=== PATIENT | female | born 1940 | race Caucasian/White ===

== ENCOUNTER 2017-12-28 14:29 | Emergency (ER) | payer MEDICARE, BC ==
--- OUTSIDE RECORDS SUMMARY | 2017-12-28 14:37 | XMS REPORT ---
:1940 External Reference #:[id number] Author Organization [facility] Address [address] [place] [address] [place] [address] Phone [phone] Care Team Providers Name Role Phone Víctor Cochran MD Care Team Information Edger Feeder Unavailable Víctor Cochran MD Primary Care Physician Unavailable Payers Type Date Identification Numbers Payment Provider Subscriber Medicare Primary Effective: Policy Number: Medicare Doris Dietz 2005 [id number] PayID: [id number] [address] [place] [address] Medigap Part B Effective: 2005 Policy Number: [facility] Joseph Dietz [id number] PayID: [id number] [address] [place] [address] Problems Date Description Provider Status Onset: 01/12/2017 Cough variant asthma Umu Quesada M.D.,FACP Onset: 04/23/2007 Diverticulitis of colon Umu Quesada M.D.FACP Onset: 08/16/2008 Benign essential hypertension Víctor Cochran Active MichaelFACP Onset: 08/17/2010 Chronic nonalcoholic liver Víctor Cochran Active disease Michael,FACP Note: needs yearly LFTs Onset: 09/19/2011 Hereditary hemochromatosis Víctor Cochran M.D.,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 Onset: 09/19/2011 Pure hypercholesterolemia Umu Quesada M.D.,ABISAIP Onset: 09/19/2011 Allergic rhinitis due to pollen Umu Quesada M.D.,ABISAIP Onset: 02/12/2012 Osteochondropathy Umu Quesada M.D.,FACP Onset: 12/31/2012 Impaired fasting glycaemia Umu Quesada M.D.,FACP Onset: 12/31/2012 Left bundle branch hemiblock Umu Quesada M.D.,ABISAIP Onset: 07/13/2014 Cholelithiasis without obstruction Umu Quesada M.D.,ABISAIP Onset: 12/18/2016 Cardiomyopathy Umu Quesada M.D.,ARRON Note: EF 40% Onset: 07/13/2014 Hypercalcemia Víctor Cochran M.D.,ARRON Inactive Inactive: 12/18/2016 Family History Date Family Member(s) Problem(s) Comments General Hypertension Father due to Parkinsons () Disease Mother Pacemaker : (age 101 Mother due to Natural Causes Years) First Son Hemochromatosis First Daughter No Current Problems Siblings 2 3 initially First Brother Heart Disease First Brother due to Lung Cancer () First Brother Alcoholism First Brother Lung Cancer First Sister Lung Cancer Social History Type Date Description Comments Marital Status Lives With Spouse Occupation Retired Cigarette Use Never Smoked Cigarettes ETOH Use 09/11/2017 Occasionally consumes alcohol Recreational Drug Use Denies Drug Use Smoking Patient has never smoked General Hx Text 3 kids Allergies, Adverse Reactions, Alerts Date Description Reaction Status Severity Comments 04/20/2007 Penicillin active 04/20/2007 Lisinopril active Medications Medication Date Status Form Strength Qnty SIG Indications Ordering Provider Proair HFA 09/11 Active Aerosol 108(90Bas 8.5un 2 puffs by e) its mouth every D. Sammie, mcg/Act 4 hours as ARRON Rodriguez needed Senior Tabs 12/18 Active Tablets 1 po qd Klaus Cochran M.D.,FACP Vitamin D 12/05 Active Tablets 1000Unit 30tab by mouth Víctor /2014 s everyday Otis Cochran M.D.,FACP Losartan 01/22 Active Tablets 50-12.5mg 90tab take 1 Víctor Potassium/[place] /2010 s tablet every Otis Cochran, chlorothiazide morning M.DGriffin,FACP Ursodiol 04/20 Active Capsules 300mg 60cap bid 535.40 Víctor /2006 s Otis Cochran M.D.,FACP Hydrocortisone Active Cream 0.2% topical Unknown Valerate twice daily to area as needed Colace Active Capsules 100mg 1 po bid Unknown /0000 Flaxseed Oil Active Capsules 1000mg 1 po qd Unknown Systane Active Solution 0.4-0.3% 1 gtt ou Unknown Preservative /0000 daily prn Free for dry eyes Genteal Mild To Active Solution 0.3% 1ml 1-2 gtt in Unknown Moderate /0000 eye(s) prn Vagifem Active Tablets 10mcg 24tab pv twice a Unknown /0000 s week (with applicator) Premarin Active Cream 0.625mg/G use1 Unknown /0000 M applicator intavaginal 2x per week Omeprazole Active Capsules DR 20mg 1 by mouth Víctor / every day Otis Cochran, prn MYaneth,FACP Acetaminophen Active Tablets 325mg 2 tablets by Unknown /0000 mouth every 6 hours as needed for pain/fever Metamucil Active Powder 28.3% per package Unknown Smooth Texture /0000 instructions Aspir-[address] 81mg pt takes bid Unknown /0000 three days prior to phlebotomy Fluticasone Active Suspension 50mcg/Act 2 sprays Unknown Propionate /0000 each nostril qd. Asmanex 09/11 Hx Aerosol 110mcg/In 1unit 1 inhalation Víctor Twisthaler h s in evening Otis Cochran, Metered Doses - Michael,FACP 12/18 Transderm-Scop 09/11 Hx Patches 1mg/3Days 8unit apply 1 Víctor (1.5 MG) /2017 72HR s patch to Otis Cochran, - skin every 3 M.D.,FACP 12/19 days as needed Flonase Allergy 08/25 Hx Suspension 50mcg/Act 9.900 spray 1 J45.991 ml spray in [facility] - each nostril , M.D. 09/11 twice daily as needed Proventil HFA 01/12 Hx Aerosol 108(90Bas 6.700 inhale two e) gm puffs by [facility] - mcg/Act mouth four , M.D. 09/11 times a day as needed Nabumetone 03/08 Hx Tablets 750mg 45tab take 1 S33.6xxA s tablet by Otis Cochran, - mouth two M.D.,[facility] 08/16 times daily prn Flonase Allergy 09/27 Hx Suspension 50mcg/Act 9.900 2 sprays per ml nostril Guevara, - daily M.D. 08/16 Delsym 09/27 Hx Liquid ER 30mg/5ML 89ml 1 tablespoon by mouth Guevara, - once a day M.D. 08/16 Calcium-Vitamin 07/13 Hx Tablets 600-800mg 1 tab daily -Unit Otis Cochran, - M.D.,[facility] 12/05 Mytussin ac 09/18 Hx Syrup 100-10mg/ 118ml 5 ml po 477.0 5ML q4-6h Otis Cochran, - M.D.,[facility] 12/31 Azithromycin 11/27 Hx Tablets 250mg 6tabs 2 tabs po qd 466.0 x1 day, 1 Otis Cochran, - tab po qd x M.D.,[facility] 09/18 4 days Flonase 11/27 Hx Suspension 50mcg/Act 3mon 2 477.9 sprays/nostr Otis Cochran, - il/day M.D.,[facility] 12/31 Hydrocortisone 11/27 Hx 2.5% 50uni apply 692.89 Víctor ts sparingly to D. [place], - the affected M.D.,[facility] 07/13 areas twice /2014 daily more Mytussin ac 11/27 Hx Syrup 100-10mg/ 118ml 5 ml po 466.0 5ML q4-6h Aliza Jimenez M.D.,[facility] 09/18 Hyzaar 06/29 Hx Tablets 50-12.5 90tab po qam Víctor s Aliza Jimenez M.D.,[facility] 01/22 Avelox 04/23 Hx Tablets 400mg 9tabs qd for 9 562.11 Víctor days Aliza Jimenez M.D.,[facility] 08/16 Avalide 04/20 Hx Tablets 150-12.5 90tab 1 PO qd Víctor s Aliza Jimenez M.D.,[facility] 06/29 Ibuprofen 04/20 Hx Tablets 600mg tid prn Víctor Aliza Jimenez M.D.,[facility] 07/13 Calcium-Vitamin 04/20 Hx Tablets 500-125 bid Víctor [place] Aliza Jimenez M.D.,[facility] 07/13 Prilosec 04/[address] 20mg 180ca 1 po qd 535.40 Víctor ps Aliza Jimenez M.D.,[facility] 08/16 Multi Vitamin /00 Hx Tablets 1 po qd Unknown / - 12/18 Vitamin B / Hx Capsules 1 po qd Unknown Complex / - 11/27 Vitamin D-3 Hx Tablets 400Unit 2 daily Unknown / - 03/08 Aspirin Low Hx Tablets 81mg 1 by mouth Unknown Dose /0000 every day - 07/13 Ibuprofen Hx Capsules 200mg as needed Unknown - 12/[address] 20mg 1 by mouth Unknown /0000 every day - 07/13 Robitussin Hx Syrup 15mg/5ML 1 teaspoon Unknown Maximum /0000 every 8 Strength - hours as 12/18 needed for cough Systane Hx Gel 0.4-0.3% Unknown / - 08/21 Medications Administered in Office Medication Date Status Form Strength Qnty SIG Indications Ordering Provider Triamcinolone 12/12/ Injection Robb (Kenalog) 2018 MD Aliya Immunizations CPT Code Status Date Vaccine Reaction Lot # [id number] Given 03/13/2017 Influenza Virus Vaccine, no immediate [id number] Quadrivalent, Split, reaction, pt Preservative Free tolerated well 75553 Given 02/26/2016 Influenza Virus Vaccine, [id number] Quadrivalent, Split, Preservative Free 00511 Given 08/17/2015 Pneumococcal Conjugate [id number] Vaccine 13 Valent For Intramuscular Use 32975 Given 04/20/2015 Influenza Virus Vaccine, [id number] Quadrivalent, Split, Preservative Free 12831 Given 04/01/2014 Flu Vaccine Split Virus [id number] Preservative Free For Indiv 3Yr Older 55931 Given 03/26/2013 Flu Vaccine Split Virus [id number] Preservative Free For Indiv 3Yr Older Q2038 Given 03/04/2012 Fluzone Vaccine [id number] Q2038 Given 03/18/2011 Fluzone Vaccine [id number] 79423 Given 03/30/2010 Influenza Virus 3Yrs & [id number] Over 99972 Given 06/27/2009 Influenza Virus Vaccine, [id number] Pandemic Formulation 80466 Given 03/23/2009 Influenza Virus 3Yrs & [id number] Over 56497 Given 03/23/2009 Influenza Virus 3Yrs & Over 69020 Given 06/27/2008 Zoster (Zostavax) 75573 Given 06/27/2008 Zoster (Zostavax) 06201 Given 06/27/2008 Zoster (Zostavax) [id number] 55614 Given 03/21/2008 Influenza Virus 3Yrs & [id number] Over 40784 Given 04/09/2007 Influenza Virus 3Yrs & Over 55794 Given 04/09/2007 Influenza Virus 3Yrs & [id number] Over 53837 Given 10/06/2006 Tdap - Tetanus/Diptheria/Acellula r Pertussis 98639 Given 12/24/2005 Pneumonia Vaccine Vital Signs Date Vital Result Comment 12/19/2017 Height 61.5 inches 5'1.50" Weight 154.00 lb Heart Rate 103 /min BP Systolic Sitting 126 mmHg BP Diastolic Sitting 66 mmHg Body Temperature 97.3 F O2 % BldC Oximetry 97 % BMI (Body Mass Index) 28.6 kg/m2 12/12/2017 Height 62 inches 5'2" Weight 157.00 lb Heart Rate 92 /min BP Systolic Sitting 160 mmHg BP Diastolic Sitting 100 mmHg Respiratory Rate 16 /min Pain Level 2 BMI (Body Mass Index) 28.7 kg/m2 09/11/2017 Weight 157.00 lb Heart Rate 102 /min BP Systolic 130 mmHg BP Diastolic 64 mmHg Body Temperature 97.6 F O2 % BldC Oximetry 96 % 08/25/2017 Height 62 inches 5'2" Weight 159.12 lb Heart Rate 97 /min BP Systolic Sitting 138 mmHg BP Diastolic Sitting 80 mmHg Body Temperature 97.6 F O2 % BldC Oximetry 97 % BMI (Body Mass Index) 29.1 kg/m2 01/24/2017 Height 62 inches 5'2" Weight 158.00 lb BP Systolic 132 mmHg BP Diastolic 84 mmHg Respiratory Rate 16 /min Body Temperature 98.0 F Pain Level 4 BMI (Body Mass Index) 28.9 kg/m2 12/18/2016 Height 62 inches 5'2" Weight 157.25 lb Heart Rate 101 /min BP Systolic Sitting 120 mmHg BP Diastolic Sitting 66 mmHg Body Temperature 98.5 F O2 % BldC Oximetry 98 % BMI (Body Mass Index) 28.8 kg/m2 08/17/2015 Height 62 inches 5'2" Weight 155.50 lb Heart Rate 110 /min BP Systolic Sitting 140 mmHg BP Diastolic Sitting 84 mmHg Body Temperature 97.4 F O2 % BldC Oximetry 97 % BMI (Body Mass Index) 28.4 kg/m2 03/08/2015 Height 62 inches 5'2" Weight 163.00 lb Heart Rate 84 /min BP Systolic Sitting 158 mmHg BP Diastolic Sitting 87 mmHg Respiratory Rate 14 /min Body Temperature 97.6 F Pain Level 8 O2 % BldC Oximetry 95 % room air BMI (Body Mass Index) 29.8 kg/m2 09/09/2014 Height 62 inches 5'2" Weight 166.50 lb Heart Rate 106 /min BP Systolic Sitting 152 mmHg BP Diastolic Sitting 70 mmHg Body Temperature 99.0 F O2 % BldC Oximetry 99 % BMI (Body Mass Index) 30.4 kg/m2 07/13/2014 Height 62 inches 5'2" Weight 161.00 lb Heart Rate 86 /min BP Systolic Sitting 124 mmHg BP Diastolic Sitting 70 mmHg Body Temperature 97.0 F O2 % BldC Oximetry 96 % BMI (Body Mass Index) 29.4 kg/m2 04/11/2014 Weight 164.50 lb Heart Rate 101 /min BP Systolic Sitting 152 mmHg BP Diastolic Sitting 83 mmHg Body Temperature 97.6 F O2 % BldC Oximetry 96 % 12/31/2012 Height 61.75 inches 5'1.75" Weight 158.50 lb Heart Rate 106 /min BP Systolic Sitting 126 mmHg BP Diastolic Sitting 82 mmHg BMI (Body Mass Index) 29.2 kg/m2 09/19/2011 Height 62 inches 5'2" Weight 152.00 lb Heart Rate 84 /min BP Systolic Sitting 110 mmHg BP Diastolic Sitting 66 mmHg Respiratory Rate 16 /min Body Temperature 97.4 F BMI (Body Mass Index) 27.8 kg/m2 03/20/2011 Height 62 inches 5'2" Weight 151.00 lb Heart Rate 72 /min BP Systolic Sitting 138 mmHg BP Diastolic Sitting 82 mmHg BMI (Body Mass Index) 27.6 kg/m2 11/27/2010 Weight 152.00 lb Heart Rate 84 /min BP Systolic Sitting 142 mmHg BP Diastolic Sitting 86 mmHg Body Temperature 97.5 F lt ear O2 % BldC Oximetry 98 % room air 08/17/2010 Height 62 inches 5'2" Weight 147.00 lb Heart Rate 64 /min BP Systolic 118 mmHg BP Diastolic 82 mmHg BMI (Body Mass Index) 26.9 kg/m2 08/16/2008 Height 62 inches 5'2" Weight 163.00 lb Heart Rate 96 /min BP Systolic Sitting 150 mmHg BP Diastolic Sitting 78 mmHg BMI (Body Mass Index) 29.8 kg/m2 04/23/2007 Height 62 inches 5'2" Weight 160.00 lb Heart Rate 74 /min BP Systolic Sitting 112 mmHg BP Diastolic Sitting 70 mmHg BMI (Body Mass Index) 29.3 kg/m2 04/20/2007 Height 62 inches 5'2" Weight 160.00 lb Heart Rate 100 /min BP Systolic Standing 130 mmHg BP Diastolic Standing 70 mmHg BP Systolic Lying Down 0 mmHg BMI (Body Mass Index) 29.3 kg/m2 Results Test Date Test Result H/L Range Note Lipid Profile (Trig/Chol/HDL) 12/15/2017 Triglycerides 93 mg/dL 1 Cholesterol 197 mg/dL 2 HDL Cholesterol 73.1 mg/dL 3 LDL Cholesterol 105 mg/dL 4 Basic Metabolic Panel 12/15/2017 Sodium 138 mmol/L 135-145 Potassium 4.1 mmol/L 3.5-5.0 Chloride 102 mmol/L 101-111 Co2 Carbon Dioxide 27 mmol/L 22-32 Anion Gap 9 mmol/L 2-11 Glucose 87 mg/dL 70-100 Blood Urea Nitrogen 15 mg/dL 6-24 Creatinine 0.59 mg/dL 0.51-0.95 BUN/Creatinine Ratio 25.4 High 8-20 Calcium 9.9 mg/dL 8.6-10.3 Egfr Non- 99.1 >60 Egfr 119.9 >60 5 Laboratory test finding 12/15/2017 Vitamin D Total 25(Oh) 41.8 ng/mL 20- 50 6 Iron & Iron Binding Capacity 05/19/2017 Iron 108 g/dL 50-212 Unsaturated Iron Binding 267 g/dL Total Iron Binding Capacity 375 g/dL 250-450 % Iron Saturation 29 % 15-55 Liver Function Panel 12/12/2016 Direct Bilirubin 0.10 mg/dL 0.03-0.18 7 Indirect Bilirubin 0.4 mg/dL 0.3-1.0 7 Iron & Iron Binding Capacity 12/12/2016 Iron 65 g/dL 50-212 7 Unsaturated Iron Binding 348 g/dL 7 Total Iron Binding Capacity 413 g/dL 250-450 7 % Iron Saturation 16 % 15-55 7 Laboratory test finding 12/12/2016 Ferritin 25.9 ng/mL 11-307 7 Lipid Profile (Trig/Chol/HDL) 12/12/2016 Triglycerides 95 mg/dL 7, 8 Cholesterol 189 mg/dL 7, 9 HDL Cholesterol 65.1 mg/dL 7, 10 LDL Cholesterol 105 mg/dL 7, 11 Comp Metabolic Panel 12/12/2016 Sodium 132 mmol/L Low 133-145 7 Potassium 3.6 mmol/L 3.5-5.0 7 Chloride 100 mmol/L Low 101-111 7 Co2 Carbon Dioxide 25 mmol/L 22-32 7 Anion Gap 7 mmol/L 2-11 7 Glucose 106 mg/dL High 70-100 7 Blood Urea Nitrogen 12 mg/dL 6-24 7 Creatinine 0.56 mg/dL 0.51-0.95 7 BUN/Creatinine Ratio 21.4 High 8-20 7 Calcium 10.1 mg/dL 8.6-10.3 7 Total Protein 7.8 g/dL 6.4-8.9 7 Albumin 4.2 g/dL 3.2-5.2 7 Globulin 3.6 g/dL 2-4 7 Albumin/Globulin Ratio 1.2 1-3 7 Total Bilirubin 0.50 mg/dL 0.2-1.0 7 Alkaline Phosphatase 88 U/L 34-104 7 Alt 58 U/L High 7-52 7 Ast 91 U/L High 13-39 7 Egfr Non- 105.5 >60 7 Egfr 135.7 >60 7, 12 CBC Auto Diff 12/12/2016 White Blood Count 5.4 10^3/uL 3.5-10.8 7 Red Blood Count 4.39 10^6/uL 4.0-5.4 7 Hemoglobin 11.8 g/dL Low 12.0-16.0 7 Hematocrit 37 % 35-47 7 Mean Corpuscular Volume 84 fL 80-97 7 Mean Corpuscular Hemoglobin 27 pg 27-31 7 Mean Corpuscular HGB Conc 32 g/dL 31-36 7 Red Cell Distribution Width 16 % High 10.5-15 7 Platelet Count 234 10^3/uL 150-450 7 Mean Platelet Volume 8 um3 7.4-10.4 7 Abs Neutrophils 3.1 10^3/uL 1.5-7.7 7 Abs Lymphocytes 1.6 10^3/uL 1.0-4.8 7 Abs Monocytes 0.5 10^3/uL 0-0.8 7 Abs Eosinophils 0.1 10^3/uL 0-0.6 7 Abs Basophils 0 10^3/uL 0-0.2 7 Abs Nucleated RBC 0.01 10^3/uL 7 Granulocyte % 57.3 % 38-83 7 Lymphocyte % 30.2 % 25-47 7 Monocyte % 9.7 % High 1-9 7 Eosinophil % 2.4 % 0-6 7 Basophil % 0.4 % 0-2 7 Nucleated Red Blood Cells % 0.1 7 Laboratory test 04/23/2016 Therapeutic Phlebotomy (SEE NOTE) 13, 14 finding Basic Metabolic Panel 11/03/2015 Sodium 139 mmol/L 133-145 Potassium 4.0 mmol/L 3.5-5.0 Chloride 103 mmol/L 101-111 Co2 Carbon Dioxide 28 mmol/L 22-32 Anion Gap 8 mmol/L 2-11 Glucose 99 mg/dL 70-100 Blood Urea Nitrogen 12 mg/dL 6-24 Creatinine 0.60 mg/dL 0.51-0.95 BUN/Creatinine Ratio 20.0 8-20 Calcium 9.9 mg/dL 8.6-10.3 Egfr Non- 97.7 >60 Egfr 125.7 >60 15 CBC Auto Diff 11/03/2015 White Blood Count 3.9 10^3/uL 3.5-10.8 Red Blood Count 4.62 10^6/uL 4.0-5.4 Hemoglobin 15.0 g/dL 12.0-16.0 Hematocrit 44 % 35-47 Mean Corpuscular Volume 96 fL 80-97 Mean Corpuscular Hemoglobin 33 pg High 27-31 Mean Corpuscular HGB Conc 34 g/dL 31-36 Red Cell Distribution Width 14 % 10.5-15 Platelet Count 204 10^3/uL 150-450 Mean Platelet Volume 8 um3 7.4-10.4 Abs Neutrophils 2.4 10^3/uL 1.5-7.7 Abs Lymphocytes 1.1 10^3/uL 1.0-4.8 Abs Monocytes 0.3 10^3/uL 0-0.8 Abs Eosinophils 0.1 10^3/uL 0-0.6 Abs Basophils 0 10^3/uL 0-0.2 Abs Nucleated RBC 0 10^3/uL Granulocyte % 60.2 % 38-83 Lymphocyte % 28.4 % 25-47 Monocyte % 8.2 % 1-9 Eosinophil % 2.5 % 0-6 Basophil % 0.7 % 0-2 Nucleated Red Blood Cells % 0.1 Liver Function Panel 11/03/2015 Total Protein 7.2 g/dL 6.4-8.9 Albumin 4.2 g/dL 3.2-5.2 Globulin 3.0 g/dL 2-4 Albumin/Globulin Ratio 1.4 1-3 Total Bilirubin 0.60 mg/dL 0.2-1.0 Direct Bilirubin 0.20 mg/dL High 0.03-0.18 Indirect Bilirubin 0.4 mg/dL 0.3-1.0 Alkaline Phosphatase 103 U/L 34-104 Alt 146 U/L High 7-52 Ast 161 U/L High 13-39 Laboratory test finding 11/03/2015 Ferritin 617.0 ng/mL High 11-307 16 Iron & Iron Binding Capacity 11/03/2015 Iron 139 g/dL 50-212 Unsaturated Iron Binding 162 g/dL Total Iron Binding Capacity 301 g/dL 250-450 % Iron Saturation 46 % 15-55 Lipid Profile (Trig/Chol/HDL) 08/03/2015 Triglycerides 86 mg/dL 17 Cholesterol 207 mg/dL 18 HDL Cholesterol 64.0 mg/dL 19 LDL Cholesterol 126 mg/dL 20 Laboratory test finding 05/16/2015 Surgical Pathology SEE RESULT BELOW 21 Comp Metabolic Panel 04/19/2015 Sodium 136 mmol/L 133-145 Potassium 4.0 mmol/L 3.5-5.0 Chloride 100 mmol/L Low 101-111 Co2 Carbon Dioxide 29 mmol/L 22-32 Anion Gap 7 mmol/L 2-11 Glucose 156 mg/dL High 70-100 Blood Urea Nitrogen 13 mg/dL 6-24 Creatinine 0.58 mg/dL 0.51-0.95 BUN/Creatinine Ratio 22.4 High 8-20 Calcium 10.5 mg/dL High 8.6-10.3 Total Protein 7.4 g/dL 6.4-8.9 Albumin 4.3 g/dL 3.2-5.2 Globulin 3.1 g/dL 2-4 Albumin/Globulin Ratio 1.4 1-3 Total Bilirubin 0.50 mg/dL 0.2-1.0 Alkaline Phosphatase 103 U/L 34-104 Alt 170 U/L High 7-52 Ast 224 U/L High 13-39 Egfr Non- 101.6 >60 Egfr 130.7 >60 22 Inr/Protime 04/19/2015 Inr 0.99 0.89-1.11 23 CBC Auto Diff 04/19/2015 White Blood Count 5.0 10^3/uL 4.8-10.8 Red Blood Count 4.74 10^6/uL 4.0-5.4 Hemoglobin 15.6 g/dL 12.0-16.0 Hematocrit 47 % 35-47 Mean Corpuscular Volume 98 fL High 80-97 Mean Corpuscular Hemoglobin 33 pg High 27-31 Mean Corpuscular HGB Conc 33 g/dL 31-36 Red Cell Distribution Width 13 % 10.5-15 Platelet Count 213 10^3/uL 150-450 Mean Platelet Volume 9 um3 7.4-10.4 Abs Neutrophils 3.5 10^3/uL 1.5-7.7 Abs Lymphocytes 1.0 10^3/uL 1.0-4.8 Abs Monocytes 0.3 10^3/uL 0-0.8 Abs Eosinophils 0.1 10^3/uL 0-0.6 Abs Basophils 0 10^3/uL 0-0.2 Abs Nucleated RBC 0.02 10^3/uL Granulocyte % 70.4 % 38-83 Lymphocyte % 20.7 % Low 25-47 Monocyte % 7.1 % 1-9 Eosinophil % 1.4 % 0-6 Basophil % 0.4 % 0-2 Nucleated Red Blood Cells % 0.3 Basic Metabolic Panel 11/11/2014 Sodium 137 mmol/L 133-145 Potassium 4.0 mmol/L 3.5-5.0 Chloride 104 mmol/L 101-111 Co2 Carbon Dioxide 27 mmol/L 22-32 Anion Gap 6 mmol/L 2-11 Glucose 105 mg/dL High 70-100 Blood Urea Nitrogen 13 mg/dL 6-24 Creatinine 0.53 mg/dL 0.51-0.95 BUN/Creatinine Ratio 24.5 High 8-20 Calcium 9.6 mg/dL 8.6-10.3 Egfr Non- 113.1 >60 Egfr 145.4 >60 24 CBC Auto Diff 09/20/2014 White Blood Count 5.4 10^3/uL 4.8-10.8 Red Blood Count 4.75 10^6/uL 4.0-5.4 Hemoglobin 15.2 g/dL 12.0-16.0 Hematocrit 46 % 35-47 Mean Corpuscular Volume 97 fL 80-97 Mean Corpuscular Hemoglobin 32 pg High 27-31 Mean Corpuscular HGB Conc 33 g/dL 31-36 Red Cell Distribution Width 13 % 10.5-15 Platelet Count 230 10^3/uL 150-450 Mean Platelet Volume 8 um3 7.4-10.4 Abs Neutrophils 3.2 10^3/uL 1.5-7.7 Abs Lymphocytes 1.5 10^3/uL 1.0-4.8 Abs Monocytes 0.5 10^3/uL 0-0.8 Abs Eosinophils 0.1 10^3/uL 0-0.6 Abs Basophils 0 10^3/uL 0-0.2 Abs Nucleated RBC 0 10^3/uL Granulocyte % 58.9 % 38-83 Lymphocyte % 28.2 % 25-47 Monocyte % 10.0 % High 1-9 Eosinophil % 2.5 % 0-6 Basophil % 0.4 % 0-2 Nucleated Red Blood Cells % 0 Laboratory test finding 09/20/2014 TSH (Thyroid Stimulating 2.71 IU/mL 0.34-5.60 Horm) Liver Function Panel 08/09/2014 Total Protein 7.1 g/dL 6.4-8.9 Albumin 4.3 g/dL 3.2-5.2 Globulin 2.8 g/dL 2-4 Albumin/Globulin Ratio 1.5 1-3 Total Bilirubin 0.50 mg/dL 0.2-1.0 Direct Bilirubin 0.10 mg/dL 0.03-0.18 Indirect Bilirubin 0.4 mg/dL 0.3-1.0 Alkaline Phosphatase 87 U/L 34-104 Alt 90 U/L High 7-52 Ast 66 U/L High 13-39 Iron & Iron Binding Capacity 08/09/2014 Iron 71 g/dL 50-212 Unsaturated Iron Binding 223 g/dL Total Iron Binding Capacity 294 g/dL 250-450 % Iron Saturation 24 % 15-55 Laboratory test finding 08/09/2014 Ferritin 364.5 ng/mL High 11-307 Calcium Ionized 4.97 mg/dL 4.65-5.28 Vitamin D, 25 Hydroxy 08/09/2014 25-Hydroxy Vitamin D2 <4.0 ng/mL 25-Hydroxy Vitamin D3 52 ng/mL 25-Hydroxy Vitamin D Total 52 ng/mL 25 Vitamin D 1,25 And 08/09/2014 Vitamin D 1,25-Dihydroxy 70 pg/mL 18-78 26 Vitamin D,2 Pthi 08/09/2014 PTH Intact 3.8 pmol/L 1.3-9.3 Calcium (PTH Intact) 10.5 mg/dL High 8.6-10.3 Lipid Profile (Trig/Chol/HDL) 07/06/2014 Triglycerides 68 mg/dL 27, 28 Cholesterol 201 mg/dL 27, 29 HDL Cholesterol 78.2 mg/dL 27, 30 LDL Cholesterol 109 mg/dL 27, 31 Basic Metabolic Panel 07/06/2014 Sodium 138 mmol/L 133-145 27 Potassium 4.0 mmol/L 3.5-5.0 27 Chloride 103 mmol/L 101-111 27 Co2 Carbon Dioxide 28 mmol/L 22-32 27 Anion Gap 7 mmol/L 2-11 27 Glucose 90 mg/dL 70-100 27 Blood Urea Nitrogen 16 mg/dL 6-24 27 Creatinine 0.62 mg/dL 0.51-0.95 27 BUN/Creatinine Ratio 25.8 High 8-20 27 Calcium 10.4 mg/dL High 8.6-10.3 27 Egfr Non- 94.4 >60 27 Egfr 121.3 >60 27, 32 Clotest 07/16/2013 Clotest (SEE NOTE) 33 Surgical Pathology 07/16/2013 S RUN DATE: 07/20/ <SEE 34 NOTE> Laboratory test finding 04/30/2013 Afp Tumor Marker 4.7 ng/mL 35 CA 19-9 7 U/mL <55 36 Comp Metabolic Panel 04/30/2013 Sodium 138 mmol/L 133-145 Potassium 3.5 mmol/L 3.5-5.0 Chloride 103 mmol/L 101-111 Co2 Carbon Dioxide 27.0 mmol/L 22-32 Anion Gap 8.0 mmol/L 2-11 Glucose 79 mg/dL 70-100 Blood Urea Nitrogen 14 mg/dL 6-24 Creatinine 0.50 mg/dL 0.50-1.40 BUN/Creatinine Ratio 28.0 High 8-20 Calcium 10.4 mg/dL High 8.1-9.9 Total Protein 7.0 g/dL 6.2-8.1 Albumin 4.3 g/dL 3.2-5.2 Globulin 2.7 g/dL 2-4 Albumin/Globulin Ratio 1.6 1-3 Total Bilirubin 0.7 mg/dL 0.4-1.5 Alkaline Phosphatase 75 U/L 30-110 Alt 77 U/L High 14-54 Ast 57 U/L High 12-42 Egfr Non- 121.3 >60 Egfr 156.0 >60 37 CBC Auto Diff 04/30/2013 White Blood Count 4.6 10^3/uL Low 4.8-10.8 Red Blood Count 4.69 10^6/uL 4.0-5.4 Hemoglobin 15.0 g/dL 12.0-16.0 Hematocrit 44 % 35-47 Mean Corpuscular Volume 94 fL 80-97 Mean Corpuscular Hemoglobin 32 pg High 27-31 Mean Corpuscular HGB Conc 34 g/dL 31-36 Red Cell Distribution Width 13 % 10.5-15 Platelet Count 242 10^3/uL 150-450 Mean Platelet Volume 8 um3 7.4-10.4 Abs Neutrophils 3.0 10^3/uL 1.5-7.7 Abs Lymphocytes 1.0 10^3/uL 1.0-4.8 Abs Monocytes 0.5 10^3/uL 0-0.8 Abs Eosinophils 0.1 10^3/uL 0-0.6 Abs Basophils 0 10^3/uL 0-0.2 Abs Nucleated RBC 0 10^3/uL Granulocyte % 64.9 % 38-83 Lymphocyte % 22.6 % Low 25-47 Monocyte % 10.7 % High 1-9 Eosinophil % 1.4 % 0-6 Basophil % 0.4 % 0-2 Nucleated Red Blood Cells % 0 CBC Auto Diff 01/18/2013 White Blood Count 4.5 10^3/uL Low 4.8-10.8 Red Blood Count 4.68 10^6/uL 4.0-5.4 Hemoglobin 14.9 g/dL 12.0-16.0 Hematocrit 44 % 35-47 Mean Corpuscular Volume 95 fL 80-97 Mean Corpuscular Hemoglobin 32 pg High 27-31 Mean Corpuscular HGB Conc 34 g/dL 31-36 Red Cell Distribution Width 13 % 10.5-15 Platelet Count 216 10^3/uL 150-450 Mean Platelet Volume 9 um3 7.4-10.4 Abs Neutrophils 2.8 10^3/uL 1.5-7.7 Abs Lymphocytes 1.2 10^3/uL 1.0-4.8 Abs Monocytes 0.4 10^3/uL 0-0.8 Abs Eosinophils 0.1 10^3/uL 0-0.6 Abs Basophils 0 10^3/uL 0-0.2 Abs Nucleated RBC 0 10^3/uL Granulocyte % 62.1 % 38-83 Lymphocyte % 26.3 % 25-47 Monocyte % 9.1 % High 1-9 Eosinophil % 2.2 % 0-6 Basophil % 0.3 % 0-2 Nucleated Red Blood Cells % 0 Liver Function Panel 01/18/2013 Total Protein 6.4 g/dL 6.2-8.1 Albumin 4.0 g/dL 3.2-5.2 Globulin 2.4 g/dL 2-4 Albumin/Globulin Ratio 1.7 1-3 Total Bilirubin 0.7 mg/dL 0.4-1.5 Direct Bilirubin 0.1 mg/dL 0.1-0.5 Indirect Bilirubin 0.6 mg/dL 0.3-1.0 Alkaline Phosphatase 63 U/L 30-110 Alt 74 U/L High 14-54 Ast 54 U/L High 12-42 Lipid Profile (Trig/Chol/HDL) 12/28/2012 Triglycerides 58 mg/dL 40-200 Cholesterol 215 mg/dL High Less than 200 HDL Cholesterol 77 mg/dL High 40-60 38 Cholesterol/HDL Ratio 2.8 Average 1-4.44 LDL Cholesterol 126.4 High Less Than 100 39 Comp Metabolic Panel 12/28/2012 Sodium 139 mmol/L 133-145 Potassium 4.3 mmol/L 3.5-5.0 Chloride 106 mmol/L 101-111 Co2 Carbon Dioxide 28.0 mmol/L 22-32 Anion Gap 5.0 mmol/L 2-11 Glucose 112 mg/dL High 70-100 Blood Urea Nitrogen 14 mg/dL 6-24 Creatinine 0.60 mg/dL 0.50-1.40 BUN/Creatinine Ratio 23.3 High 8-20 Calcium 10.3 mg/dL High 8.1-9.9 Total Protein 7.2 g/dL 6.2-8.1 Albumin 4.3 g/dL 3.2-5.2 Globulin 2.9 g/dL 2-4 Albumin/Globulin Ratio 1.5 1-3 Total Bilirubin 0.8 mg/dL 0.4-1.5 Alkaline Phosphatase 69 U/L 30-110 Alt 155 U/L High 14-54 Ast 116 U/L High 12-42 Egfr Non- 98.3 >60 Egfr 126.4 >60 40 Iron & Iron Binding Capacity 12/28/2012 Iron 83 g/dL 28-170 Unsaturated Iron Binding 257 g/dL Total Iron Binding Capacity 340 g/dL 250-450 % Iron Saturation 24 % 15-55 Laboratory test finding 12/28/2012 Ferritin 350 ng/mL High 11-307 41 Vitamin D, 25 Hydroxy 11/20/2011 25-Hydroxy Vitamin D2 <4.0 ng/mL () 25-Hydroxy Vitamin D3 39 ng/mL () 25-Hydroxy Vitamin D Total 39 ng/mL () 42 Iron & Iron Binding Capacity 11/20/2011 Iron Total 84 g/dL 28-170 Unsaturated Iron Binding 248 g/dL Total Iron Binding Capacity 332 g/dL 250-450 % Iron Saturation 25 % 15-55 Liver Function Panel 11/20/2011 Total Protein 6.8 GM/DL 6.2-8.1 Albumin 4.1 GM/DL 3.2-5.2 Globulin 2.7 GM/DL 2-4 Albumin/Globulin Ratio 1.5 1-3 Bilirubin Total 0.7 mg/dL 0.4-1.5 43 Bilirubin Direct 0.1 mg/dL 0.1-0.5 Indirect Bilirubin 0.6 mg/dL 0.3-1.0 44 Alkaline Phosphatase 75 U/L 30-110 Alt (SGPT) 34 U/L 14-54 Ast (Sgot) 32 U/L 12-42 Laboratory test finding 11/20/2011 Ferritin 74 NG/ML 11.0-307 CBC Auto Diff 11/20/2011 White Blood Count 4.1 CUMM Low 4.8-10.8 Red Cell Count 4.41 CUMM 4.2-5.4 Hemoglobin 14.4 g/dL 12.0-16.0 Hematocrit 42 % 35-47 Mean Corpuscular Volume 94 um3 79-97 Mean Corpuscular Hemoglob 33 pg High 27-31 Mean Corpuscular HGB Cone 35 g/dL 32-36 Redcell Distribution WDTH 13 % 10.5-15 Platelet Count 225 CUMM 150-450 Mean Platelet Volume 8.3 um3 7.4-10.4 Gran % 58.6 % 38-83 Lymph % 30.0 % 25-47 Mononuclear % 7.8 % 1-9 Eosinophil % 3.2 % 0-6 Basophil % 0.4 % 0-2 Abs Lymphs 1.2 1.0-4.8 Abs Mononuclear 0.3 0-0.8 Absolute Neutrophil Count 2.4 1.5-7.7 Abs Eosinophils 0.1 0-0.6 Abs Basophils 0 0-0.2 Basic Metabolic Panel 09/10/2011 Sodium 137 mmol/L 135-145 27 Potassium 4.3 mmol/L 3.5-5.0 27 Chloride 102 mmol/L 101-111 27 Co2 (Carbon Dioxide) 28.0 mmol/L 22-32 27 Anion Gap 7.0 mmol/L 2-11 27, 45 Glucose 97 mg/dL 70-100 27 BUN 14 mg/dL 6-24 27 Creatinine 0.6 mg/dL 0.50-1.40 27 One Over Creatinine 1.66 27 BUN/Creatinine Ratio 23.3 High 8-20 27 Calcium 10.0 mg/dL High 8.1-9.9 27 eGFR Non- 98.8 > 60 27 eGFR 127.1 > 60 27, 46 Lipid Profile (Trig/Chol/HDL) 09/10/2011 Triglyceride 67 mg/dL 40-200 27 Cholesterol 208 mg/dL High Less Than 200 27, 47 High Density Lipoprotein 74 mg/dL High 40-60 27, 48 Cholesterol/HDL Ratio 2.81 AVERAGE 1-4.44 27 Low Density Lipoprotein 121 mg/dL High Less Than 100 27, 49 Liver Function Panel 09/10/2011 Total Protein 7.3 GM/DL 6.2-8.1 27 Albumin 4.3 GM/DL 3.2-5.2 27 Globulin 3.0 GM/DL 2-4 27 Albumin/Globulin Ratio 1.4 1-3 27 Bilirubin Total 0.6 mg/dL 0.4-1.5 27, 50 Bilirubin Direct 0.1 mg/dL 0.1-0.5 27 Indirect Bilirubin 0.5 mg/dL 0.3-1.0 27, 51 Alkaline Phosphatase 67 U/L 30-110 27 Alt (SGPT) 33 U/L 14-54 27 Ast (Sgot) 29 U/L 12-42 27 Basic Metabolic Panel 03/20/2011 Sodium 140 mmol/L 135-145 Potassium 4.1 mmol/L 3.5-5.0 Chloride 105 mmol/L 101-111 Co2 (Carbon Dioxide) 28.0 mmol/L 22-32 Anion Gap 7.0 mmol/L 2-11 52 Glucose 93 mg/dL 70-100 BUN 14 mg/dL 6-24 Creatinine 0.6 mg/dL 0.50-1.40 One Over Creatinine 1.66 BUN/Creatinine Ratio 23.3 High 8-20 Calcium 10.2 mg/dL High 8.1-9.9 eGFR Non- 98.8 > 60 eGFR 127.1 > 60 53 Vitamin D, 25 Hydroxy 03/20/2011 25-Hydroxy Vitamin D2 <4.0 ng/mL () 25-Hydroxy Vitamin D3 31 ng/mL () 25-Hydroxy Vitamin D Total 31 ng/mL () 54 Liver Function Panel 03/20/2011 Total Protein 6.6 GM/DL 6.2-8.1 Albumin 4.0 GM/DL 3.2-5.2 Globulin 2.6 GM/DL 2-4 Albumin/Globulin Ratio 1.5 1-3 Bilirubin Total 0.7 mg/dL 0.4-1.5 55 Bilirubin Direct 0.2 mg/dL 0.1-0.5 Indirect Bilirubin 0.5 mg/dL 0.3-1.0 56 Alkaline Phosphatase 67 U/L 30-110 Alt (SGPT) 38 U/L 14-54 Ast (Sgot) 34 U/L 12-42 CBC Auto Diff 03/20/2011 White Blood Count 5.0 CUMM 4.8-10.8 Red Cell Count 4.46 CUMM 4.2-5.4 Hemoglobin 14.6 g/dL 12.0-16.0 Hematocrit 42 % 35-47 Mean Corpuscular Volume 94 um3 79-97 Mean Corpuscular Hemoglob 33 pg High 27-31 Mean Corpuscular HGB Cone 35 g/dL 32-36 Redcell Distribution WDTH 13 % 10.5-15 Platelet Count 218 CUMM 150-450 Mean Platelet Volume 8.9 um3 7.4-10.4 Gran % 70.6 % 38-83 Lymph % 20.0 % Low 25-47 Mononuclear % 6.3 % 1-9 Eosinophil % 2.7 % 0-6 Basophil % 0.4 % 0-2 Abs Lymphs 1.0 1.0-4.8 Abs Mononuclear 0.3 0-0.8 Absolute Neutrophil Count 3.6 1.5-7.7 Abs Eosinophils 0.1 0-0.6 Abs Basophils 0 0-0.2 CBC No Diff 10/16/2010 White Blood Count 4.5 CUMM Low 4.8-10.8 Red Cell Count 4.39 CUMM 4.2-5.4 Hemoglobin 13.6 g/dL 12.0-16.0 Hematocrit 41 % 35-47 Mean Corpuscular Volume 93 um3 79-97 Mean Corpuscular Hemoglob 31 pg 27-31 Mean Corpuscular HGB Cone 34 g/dL 32-36 Redcell Distribution WDTH 12 % 10.5-15 Platelet Count 221 CUMM 150-450 Mean Platelet Volume 8.3 um3 7.4-10.4 Laboratory test finding 10/16/2010 Therapeutic Phlebotomy (SEE NOTE) 57 Liver Function Panel 10/16/2010 Total Protein 6.8 GM/DL 6.2-8.1 Albumin 4.1 GM/DL 3.2-5.2 Globulin 2.7 GM/DL 2-4 Albumin/Globulin Ratio 1.5 1-3 Bilirubin Total 0.6 mg/dL 0.4-1.5 58 Bilirubin Direct 0.0 mg/dL Low 0.1-0.5 Indirect Bilirubin (SEE NOTE) mg/dL 0.3-1.0 59 Alkaline Phosphatase 66 U/L 30-110 Alt (SGPT) 27 U/L 14-54 Ast (Sgot) 30 U/L 12-42 Laboratory test finding 10/16/2010 Iron Total 84 g/dL 28-170 Ferritin 84 NG/ML 11.0-307 Lipid Panel - [facility] 08/08/2010 CPK (Creatine Kinase) 63 U/L 0-170 Comp Metabolic Panel 08/08/2010 Sodium 140 mmol/L 135-145 Potassium 4.5 mmol/L 3.5-5.0 Chloride 103 mmol/L 101-111 Co2 (Carbon Dioxide) 29.0 mmol/L 22-32 Anion Gap 8.0 mmol/L 2-11 60 Glucose 103 mg/dL High 70-100 BUN 14 mg/dL 6-24 Creatinine 0.60 mg/dL 0.50-1.40 One Over Creatinine 1.60 BUN/Creatinine Ratio 23.3 High 8-20 Calcium 10.1 mg/dL High 8.1-9.9 Total Protein 6.9 GM/DL 6.2-8.1 Albumin 4.3 GM/DL 3.2-5.2 Globulin 2.6 GM/DL 2-4 Albumin/Globulin Ratio 1.7 1-3 Bilirubin Total 0.7 mg/dL 0.4-1.5 61 Alkaline Phosphatase 68 U/L 30-110 Alt (SGPT) 28 U/L 14-54 Ast (Sgot) 32 U/L 12-42 eGFR Non- 99.1 > 60 eGFR 127.5 > 60 62 Lipid Profile (Trig/Chol/HDL) 08/08/2010 Triglyceride 72 mg/dL 40-200 Cholesterol 246 mg/dL High Less Than 200 63 High Density Lipoprotein 86 mg/dL High 40-60 64 Cholesterol/HDL Ratio 2.86 AVERAGE 1-4.44 Low Density Lipoprotein 146 mg/dL High Less Than 100 65 Laboratory test finding 08/08/2010 Iron Total 102 g/dL 28-170 Ferritin 83 NG/ML 11.0-307 Hemogram 08/08/2010 White Blood Count 4.1 CUMM Low 4.8-10.8 Red Cell Count 4.65 CUMM 4.2-5.4 Hemoglobin 14.8 g/dL 12.0-16.0 Hematocrit 44 % 35-47 Mean Corpuscular Volume 94 um3 79-97 Mean Corpuscular Hemoglob 32 pg High 27-31 Mean Corpuscular HGB Cone 34 g/dL 32-36 Redcell Distribution WDTH 13 % 10.5-15 Platelet Count 239 CUMM 150-450 Mean Platelet Volume 7.9 um3 7.4-10.4 Laboratory test finding 06/14/2009 Mitochondrial AB, AMA-M2 <0.1 U <0.1 66 Igg Rafia 06/14/2009 Antinuclear AB NEGATIVE Negative Reviewed By (SEE NOTE) 67 Laboratory test finding 06/14/2009 Ferritin 61 NG/ML 11.0-307 C Reactive Protein 0.7 mg/dL High Less Than 0.5 Iron & Iron Binding Capacity 06/14/2009 Iron Total 78 g/dL 28-170 Unsaturated Iron Binding 263 g/dL Total Iron Binding Capacity 341 g/dL 250-450 % Iron Saturation 23 % 15-55 Liver Function Panel 06/14/2009 Total Protein 6.6 GM/DL 6.2-8.1 Albumin 3.9 GM/DL 3.2-5.2 Globulin 2.7 GM/DL 2-4 Albumin/Globulin Ratio 1.4 1-3 Bilirubin Total 0.5 mg/dL 0.4-1.5 68 Bilirubin Direct 0.1 mg/dL 0.1-0.5 Indirect Bilirubin 0.4 mg/dL 0.1-0.75 Alkaline Phosphatase 79 U/L 30-110 Alt (SGPT) 65 U/L High 14-54 Ast (Sgot) 62 U/L High 12-42 CBC With Electronic Diff 06/14/2009 White Blood Count 4.4 CUMM Low 4.8- 10.8 Red Cell Count 4.85 CUMM 4.2-5.4 Hemoglobin 15.4 g/dL 12.0-16.0 Hematocrit 45 % 35-47 Mean Corpuscular Volume 92 um3 79-97 Mean Corpuscular Hemoglob 32 pg High 27-31 Mean Corpuscular HGB Cone 34 g/dL 32-36 Redcell Distribution WDTH 13 % 10.5-15 Platelet Count 231 CUMM 150-450 Mean Platelet Volume 7.5 um3 7.4-10.4 Gran % 57.4 % 38-83 Lymph % 31.7 % 25-47 Mononuclear % 7.2 % 1-9 Eosinophil % 3.5 % 0-6 Basophil % 0.2 % 0-2 Abs Lymphs 1.4 1.0-4.8 Abs Mononuclear 0.3 0-0.8 Absolute Neutrophil Count 2.5 1.5-7.7 Abs Eosinophils 0.2 0-0.6 Abs Basophils 0 0-0.2 Laboratory test finding 08/11/2008 Therapeutic Phlebotomy (SEE NOTE) 69 Hemoglobin/Hematacrit 08/11/2008 Hemoglobin 13.9 g/dL 12.0-16.0 70 Hematocrit 41 % 35-47 70 Basic Metabolic Panel 08/11/2008 Sodium 135 mmol/L 135-145 70 Potassium 3.9 mmol/L 3.5-5.0 70 Chloride 103 mmol/L 101-111 70 Co2 (Carbon Dioxide) 26.0 mmol/L 22-32 70 Anion Gap 6.0 mmol/L 2-11 70, 71 Glucose 96 mg/dL 70-100 70, 72 BUN 11 mg/dL 6-24 70 Creatinine 0.60 mg/dL 0.50-1.40 70 One Over Creatinine 1.60 70 BUN/Creatinine Ratio 18.3 8-20 70 Calcium 9.7 mg/dL 8.1-9.9 70, 73 Lipid Profile (Trig/Chol/HDL) 08/11/2008 Triglyceride 92 mg/dL 40-200 70 Cholesterol 192 mg/dL Less Than 200 70, 74 High Density Lipoprotein 64 mg/dL High 40-60 70, 75 Cholesterol/HDL Ratio 3.00 AVERAGE 1-4.44 70 Low Density Lipoprotein 110 mg/dL High Less Than 100 70, 76 Liver Function Panel 08/11/2008 Total Protein 6.9 GM/DL 6.2-8.1 70 Albumin 3.8 GM/DL 3.2-5.2 70 Globulin 3.1 GM/DL 2-4 70 Albumin/Globulin Ratio 1.2 1-3 70 Bilirubin Total 0.6 mg/dL 0.4-1.5 70 Bilirubin Direct 0.1 mg/dL 0.1-0.5 70 Indirect Bilirubin 0.5 mg/dL 0.1-0.75 70 Alkaline Phosphatase 83 U/L 30-110 70 Alt (SGPT) 58 U/L High 14-54 70 Ast (Sgot) 55 U/L High 12-42 70 Iron & Iron Binding Capacity 08/11/2008 Iron Total 67 g/dL 28-170 70 Unsaturated Iron Binding 320 g/dL 70 Total Iron Binding Capacity 387 g/dL 250-450 70 % Iron Saturation 17 % 15-55 70 Laboratory test finding 08/11/2008 Ferritin 17 NG/ML 11.0-307 70 Laboratory test finding 08/11/2008 CPK (Creatine Kinase) 75 U/L 0-170 70 Laboratory test finding 03/17/2008 Therapeutic Phlebotomy (SEE NOTE) 77 Hemoglobin/Hematacrit 03/17/2008 Hemoglobin 13.9 g/dL 12.0-16.0 Hematocrit 40 % 35-47 Liver Function Panel 03/17/2008 Total Protein 6.9 GM/DL 6.2-8.1 Albumin 4.0 GM/DL 3.2-5.2 Globulin 2.9 GM/DL 2-4 Albumin/Globulin Ratio 1.4 1-3 Bilirubin Total 0.7 mg/dL 0.4-1.5 Bilirubin Direct 0.1 mg/dL 0.1-0.5 Indirect Bilirubin 0.6 mg/dL 0.1-0.75 Alkaline Phosphatase 88 U/L 30-110 Alt (SGPT) 80 U/L High 14-54 Ast (Sgot) 66 U/L High 12-42 Laboratory test finding 05/01/2007 C Reactive Protein < 0.5 mg/dL Less Than 0.5 Liver Function Panel 05/01/2007 Albumin/Globulin 1.1 1-3 Ratio Albumin 3.5 GM/DL 3.2-5.2 Alkaline Phosphatase 102 U/L 30-110 Alt (SGPT) 76 U/L High 14-54 Ast (Sgot) 61 U/L High 12-42 Bilirubin Direct 0.2 mg/dL 0.1-0.5 Globulin 3.3 GM/DL 2-4 Indirect Bilirubin 0.3 mg/dL 0.1-0.75 Bilirubin Total 0.5 mg/dL 0.4-1.5 Total Protein 6.8 GM/DL 6.2-8.1 CBC With Manual Diff 05/01/2007 White Blood Count 4.4 CUMM Low 4.8-10.8 Absolute Neutrophil Count 2.3 Atypical Lymph 3 % 0-6 Anisocytosis SLIGHT Hematocrit 37 % 35-47 Hemoglobin 12.8 g/dL 12.0-16.0 Eosenophil 1 % 0-6 Lymphocyte 28 % 5-47 Mean Corpuscular HGB Cone 34 g/dL 32-36 Mean Corpuscular Hemoglob 30 pg 27-31 Mean Corpuscular Volume 88 um3 79-97 Metamyelocyte 1 % 0-2 Monocyte 14 % High 0-13 Mean Platelet Volume 8.1 um3 7.4-10.4 Platelet Count 362 CUMM 150-450 Polysegmented Neutrophil 53 % 38-83 Red Cell Count 4.24 CUMM 4.2-5.4 Redcell Distribution WDTH 15 % 10.5-15 Laboratory test 05/01/2007 Alphafetoprotein Tumor 3.9 NG/ML <6.0 78 finding Marker Laboratory test 04/28/2007 O P: Giardia/Crypto Giardia and cryp 79, 80 finding Screen <SEE NOTE> Ova Parasite Concen 04/28/2007 Ova Parasite Concen - NO OVA PARASIT 79, 81 - Full Full <SEE NOTE> Urinalysis 04/22/2007 Ua Color YELLOW Ictotest-Urine POSITIVE (NEG) Appearance-Urine CLEAR Bilirubin-Ur POSITIVE Negative Blood-Urine TRACE Negative Esterase-Urine 2+ Negative Glucose-Urine NEGATIVE Negative Ketones-Urine NEGATIVE Negative Nitrite NEGATIVE Negative PH-Urine 6.0 5-9 Protein-Urine 1+ Negative [id number] NEGATIVE Negative Specific Rhodes-Ur 1.012 1.010-1.030 Urinalysis W/Microscopic 04/22/2007 Ua Color YELLOW Ictotest-Urine POSITIVE (NEG) Appearance-Urine CLEAR Bacteria-Urine TRACE Bilirubin-Ur POSITIVE Negative Blood-Urine TRACE Negative Epith Cells-Ur MODERATE Esterase-Urine 2+ Negative Glucose-Urine NEGATIVE Negative Ketones-Urine NEGATIVE Negative Nitrite NEGATIVE Negative PH-Urine 6.0 5-9 Protein-Urine 1+ Negative RBC-Urine RARE 0-2 [id number]-MNT NEGATIVE Negative Specific Rhodes-Ur 1.012 1.010-1.030 WBC-Urine 2-5 0-5 Laboratory test finding 04/22/2007 Urine Culture SPECIMEN CONTAIN <SEE 82 Sensitivi NOTE> Basic Metabolic Panel 04/20/2007 One Over Creatinine 1.25 Stat Anion Gap 8.0 mmol/L 2-11 83 BUN 18 mg/dL 6-24 Calcium 9.6 mg/dL 8.7-10.2 Chloride 102 mmol/L 101-111 Co2 (Carbon Dioxide) 27.0 mmol/L 22-32 Glucose 121 mg/dL High 70-105 Potassium 3.4 mmol/L Low 3.5-5.0 Sodium 137 mmol/L 135-145 BUN/Creatinine Ratio 22.5 High 8-20 Creatinine 0.8 mg/dL 0.5-1.4 Laboratory test finding 04/20/2007 C Reactive Protein 6.1 mg/dL High Less Than 0.5 CBC With Manual Diff 04/20/2007 White Blood Count 10.8 CUMM 4.8-10.8 Absolute Neutrophil Count 9.8 Atypical Lymph 1 % 0-6 Anisocytosis SLIGHT Band Neutrophil 1 % 0-8 Hematocrit 42 % 35-47 Hemoglobin 14.3 g/dL 12.0-16.0 Lymphocyte 6 % 5-47 Mean Corpuscular HGB Cone 34 g/dL 32-36 Mean Corpuscular Hemoglob 29 pg 27-31 Mean Corpuscular Volume 86 um3 79-97 Monocyte 2 % 0-13 Mean Platelet Volume 7.8 um3 7.4-10.4 Platelet Count 277 CUMM 150-450 Polysegmented Neutrophil 90 % High 38-83 Red Cell Count 4.94 CUMM 4.2-5.4 Redcell Distribution WDTH 15 % 10.5-15 Liver Function Panel 04/20/2007 Albumin/Globulin Ratio 1.1 1-3 Albumin 3.8 GM/DL 3.2-5.2 Alkaline Phosphatase 123 U/L High 30-110 Alt (SGPT) 256 U/L High 14-54 Ast (Sgot) 269 U/L High 12-42 Bilirubin Direct 0.6 mg/dL High 0.1-0.5 Globulin 3.4 GM/DL 2-4 Indirect Bilirubin 0.9 mg/dL High 0.1-0.75 Bilirubin Total 1.5 mg/dL 0.4-1.5 Total Protein 7.2 GM/DL 6.2-8.1 1 Desirable: <150 Borderline High: 150-199 High: 200-499 Very High: >500 2 Desirable: <200 Borderline High: 200-239 High: >239 3 Low: <40 Desirable: 40-60 High: >60 4 Desirable: <100 Near Optimal: 100-129 Borderline High: 130-159 High: 160-189 Very High: >189 5 Because ethnic data is not always readily available, this report includes an eGFR for both -Americans and non- Americans. The National Kidney Disease Education Program (NKDEP) does not endorse the use of the MDRD equation for patients that are not between the ages of 18 and 70, are , have extremes of body size, muscle mass, or nutritional status, or are non- or non-. According to the National Kidney Foundation, irrespective of diagnosis, the stage of the disease is based on the level of kidney function: Stage Description GFR(mL/min/1.73 m(2)) 1 Kidney damage with normal or decreased GFR 90 2 Kidney damage with mild decrease in GFR 60-89 3 Moderate decrease in GFR 30-59 4 Severe decrease in GFR 15-29 5 Kidney failure <15 (or dialysis) 6 FASTING 10 HOUR 7 THERAPEUTIC IF HGB IS GREATER THAN OR EQUAL TO 12.0 8 Desirable <150 Borderline high 150-199 High 200-499 Very High >500 9 Desirable <200 Borderline high 200-239 High >239 10 Low <40 Desirable: 40-60 High: >60 11 Desirable: <100 mg/dL Near Optimal: 100-129 mg/dL Borderline High: 130-159 mg/dL High: 160-189 mg/dL Very High: >189 mg/dL 12 Because ethnic data is not always readily available, this report includes an eGFR for both -Americans and non- Americans. The National Kidney Disease Education Program (NKDEP) does not endorse the use of the MDRD equation for patients that are not between the ages of 18 and 70, are , have extremes of body size, muscle mass, or nutritional status, or are non- or non-. According to the National Kidney Foundation, irrespective of diagnosis, the stage of the disease is based on the level of kidney function: Stage Description GFR(mL/min/1.73 m(2)) 1 Kidney damage with normal or decreased GFR 90 2 Kidney damage with mild decrease in GFR 60-89 3 Moderate decrease in GFR 30-59 4 Severe decrease in GFR 15-29 5 Kidney failure <15 (or dialysis) 13 HEREDITARY HEMOCHROMATOSIS 14 Approximately 450 ml of blood removed. 15 Because ethnic data is not always readily available, this report includes an eGFR for both -Americans and non- Americans. The National Kidney Disease Education Program (NKDEP) does not endorse the use of the MDRD equation for patients that are not between the ages of 18 and 70, are , have extremes of body size, muscle mass, or nutritional status, or are non- or non-. According to the National Kidney Foundation, irrespective of diagnosis, the stage of the disease is based on the level of kidney function: Stage Description GFR(mL/min/1.73 m(2)) 1 Kidney damage with normal or decreased GFR 90 2 Kidney damage with mild decrease in GFR 60-89 3 Moderate decrease in GFR 30-59 4 Severe decrease in GFR 15-29 5 Kidney failure <15 (or dialysis) 16 FASTING 10 HOUR Copy Result to: HAYLEY KRUSE ([id number]) 17 Desirable <150 Borderline high 150-199 High 200-499 Very High >500 18 Desirable <200 Borderline high 200-239 High >239 19 Low <40 Desirable: 40-60 High: >60 20 Desirable: <100 mg/dL Near Optimal: 100-129 mg/dL Borderline High: 130-159 mg/dL High: 160-189 mg/dL Very High: >189 mg/dL 21 SEE RESULT BELOW Name: DORIS DIETZ : [address]: Hayley Kruse MD Acct: [id number] Unit: [id number] AGE: 74 Location: ENDO Re05/16/15 SEX: F Status: REG REF SPEC: [id number] BEBE: 05/16/15-1255 [facility] [address]: Hayley Kruse MD REQ: [id number] RECD: 05/17/15 STATUS: YESICA CHAND DR: Víctor Cochran MD _ ORDERED: LEVEL IV/3 FINAL DIAGNOSIS 1. Colon, proximal sigmoid, biopsy: -- Large intestinal mucosa with architectural distortion compatible with repair. -- No active colitis or evidence of chronic inflammatory bowel disease identified. -- No adenomatous changes identified. 2. Colon, midtransverse, biopsy: -- Tubular adenoma. -- No high grade dysplasia or malignancy. 3. Colon, random biopsies: -- Large intestinal mucosal fragment with no significant pathologic abnormality. -- No evidence of microscopic/lymphocytic colitis, collagenous colitis or other chronic inflammatory bowel process identified. CLINICAL HISTORY Loose stools - settled down on Metamucil 1/2 tsp. once a day - daily x2, no blood POST-OPERATIVE DIAGNOSIS Colonoscopy to cecum with ease - increased veins, increased vascular pattern , no colitis, tiny polyps. Minimal diverticulosis, polyps - 5 years, loose stools; biopsies pending GROSS DESCRIPTION 1. The specimen is received in formalin labeled, Proximal Sigmoid (Biopsy) , and consists of a 0.5 x 0.4 x 0.2 cm rodriguez irregular soft tissue fragment, which is submitted entirely in one cassette. 2. The specimen is received in formalin labeled, Mid Transverse Colon Polyp , and consists CONTINUED ON NEXT PAGE * ML=Testing performed at Main Lab DEPARTMENT OF PATHOLOGY, [address] [place] [address] Brice Dillon M.D. Director [facility] # [id number] RUN DATE: 05/18/15 [facility] LAB LIVE PAGE 2 Patient: DORIS DIETZ [id number] (Continued) GROSS DESCRIPTION (Continued) GROSS DESCRIPTION (Continued) of a 0.4 x 0.4 x 0.2 cm aggregate of rodriguez irregular soft tissue fragments, which is submitted entirely in one cassette. 3. The specimen is received in formalin labeled, Random Colon Biopsies, and consists of two rodriguez irregular soft tissue fragments measuring 0.7 x 0.2 x 0.1 cm and 1.0 x 0.1 x 0.1 cm, which are submitted entirely in one cassette. Signed (signature on file) Brice Dillon MD [id number] END OF REPORT * ML=Testing performed at Main Lab DEPARTMENT OF PATHOLOGY, [address] [place] [address] Brice Dillon M.D. Director [facility] # [id number] 22 Because ethnic data is not always readily available, this report includes an eGFR for both -Americans and non- Americans. The National Kidney Disease Education Program (NKDEP) does not endorse the use of the MDRD equation for patients that are not between the ages of 18 and 70, are , have extremes of body size, muscle mass, or nutritional status, or are non- or non-. According to the National Kidney Foundation, irrespective of diagnosis, the stage of the disease is based on the level of kidney function: Stage Description GFR(mL/min/1.73 m(2)) 1 Kidney damage with normal or decreased GFR 90 2 Kidney damage with mild decrease in GFR 60-89 3 Moderate decrease in GFR 30-59 4 Severe decrease in GFR 15-29 5 Kidney failure <15 (or dialysis) 23 Effective immediately, due to a laboratory mean normal Protime change, the reference range for the INR has changed. 24 Because ethnic data is not always readily available, this report includes an eGFR for both -Americans and non- Americans. The National Kidney Disease Education Program (NKDEP) does not endorse the use of the MDRD equation for patients that are not between the ages of 18 and 70, are , have extremes of body size, muscle mass, or nutritional status, or are non- or non-. According to the National Kidney Foundation, irrespective of diagnosis, the stage of the disease is based on the level of kidney function: Stage Description GFR(mL/min/1.73 m(2)) 1 Kidney damage with normal or decreased GFR 90 2 Kidney damage with mild decrease in GFR 60-89 3 Moderate decrease in GFR 30-59 4 Severe decrease in GFR 15-29 5 Kidney failure <15 (or dialysis) 25 Interpretation: 51-80 ng/mL (increased risk of hypercalciuria) REFERENCE VALUE 25-HYDROXY D TOTAL (D2+D3) Optimum levels in the healthy population are 20-50, patients with bone disease may benefit from higher levels within this range. Test Performed by: [place] [address] [employer] Senior Sergeant: Domingo Owusu II, M.D., Ph.D. 26 Test Performed by: [place] [address] [employer] Senior Sergeant: Domingo Owusu II, M.D., Ph.D. 27 FASTING 28 Desirable <150 Borderline high 150-199 High 200-499 Very High >500 29 Desirable <200 Borderline high 200-239 High >239 30 Low <40 Desirable: 40-60 High: >60 31 Desirable <100 Near Optimal 100-129 Borderline high 130-159 High 160-189 Very High >189 32 Because ethnic data is not always readily available, this report includes an eGFR for both -Americans and non- Americans. The National Kidney Disease Education Program (NKDEP) does not endorse the use of the MDRD equation for patients that are not between the ages of 18 and 70, are , have extremes of body size, muscle mass, or nutritional status, or are non- or non-. According to the National Kidney Foundation, irrespective of diagnosis, the stage of the disease is based on the level of kidney function: Stage Description GFR(mL/min/1.73 m(2)) 1 Kidney damage with normal or decreased GFR 90 2 Kidney damage with mild decrease in GFR 60-89 3 Moderate decrease in GFR 30-59 4 Severe decrease in GFR 15-29 5 Kidney failure <15 (or dialysis) 33 RUN DATE: 07/17/13 [facility] LAB LIVE PAGE 1 RUN TIME: [address] [place] [id number] Specimen Inquiry Name: DORIS DIETZ : [address]: Hayley Kruse MD Acct: [id number] Unit: [id number] AGE: 72 Location: ENDO Re07/16/13 SEX: F Status: REG REF SPEC: [id number] BEBE: 07/16/13 [facility] [address]: Hayley Kruse MD REQ: [id number] RECD: 07/16/13 STATUS: SADA CHAND DR: Víctor Cochran MD _ SOURCE: GAS ANTRUM SPDESC: ORDERED: Clotest Procedure Result Verified Site Clotest Final 07/17/13- 48 ML Clotest Negative END OF REPORT * ML=Testing performed at Main Lab DEPARTMENT OF PATHOLOGY, [address] [place] [address] Brice Dillon M.D. Director [facility] Permit #[id number] RUN DATE: 07/20/13 [facility] LAB LIVE PAGE 1 RUN TIME: [address] [place] [address], [place], [place] [address] Specimen Inquiry Name: VIRGIE DIETZLY Agustina : [address]: Hayley Kruse MD Acct: [id number] Unit: [id number] AGE: 72 Location: ENDO Re07/16/13 SEX: F Status: REG REF SPEC: [id number] BEBE: 07/16/13- SUBM DR: Hayley Kruse MD REQ: [id number] RECD: 07/16/13 STATUS: YESICA CHAND DR: Víctor Cochran MD _ ORDERED: LEVEL IV FINAL DIAGNOSIS Stomach, body, biopsy: Fundic gland polyp. CLINICAL HISTORY Reflux disease/fatty liver for EGD. Dyspepsia, abdomen negative. Non- alcoholic fatty liver diseae. POST-OPERATIVE DIAGNOSIS EGD - larynx normal, Esophagus - normal. EG at 34 06/10, no varices. Stomach - small to moderate hiatal hernia. 2-4 mm. nodules, biopsied two largest. Duodenum - normal. Conclusion: 1. Hiatal hernia, 2. GERD, 3. Non-alcoholic fatty liver disease - no varices. GROSS DESCRIPTION The specimen is received in formalin labeled Doris Dietz, Biopsy Gastric Body Nodule and consists of two, rodriguez, irregular, soft tissue fragments measuring 0.4 x 0.3 x 0.2 cm. and 0.9 x 0.2 x 0.2 cm. Submitted entirely, one cassette. Signed (signature on file) Michelle Pearson MD 04/22 1700 END OF REPORT * ML=Testing performed at Main Lab DEPARTMENT OF PATHOLOGY, [address] [place] [address] Brice Dillon M.D. Director [facility] Permit #[id number] 35 -- REFERENCE VALUE -- <6.0 Reference values are for non- subjects only; production of AFP elevates values in women. The testing method is an immunoenzymatic assay manufactured by [employer] and performed on the [employer] DxI 800. Values obtained with different assay methods or kits may be different and cannot be used interchangeably. Test results cannot be interpreted as absolute evidence for the presence or absence of malignant disease. Alpha-Fetoprotein values are not interpretable in females for the investigation of malignant disease. Test Performed by: [place] [address] Intelligence Senior Sergeant: Jamel Rouse III, M.D. 36 The testing method is an immunoenzymatic assay manufactured by [employer] and performed on the [employer] DxI 800. Values obtained with different assay methods or kits may be different and cannot be used interchangeably. Test results cannot be interpreted as absolute evidence for the presence or absence of malignant disease. Test Performed by: [place] [address] Intelligence Senior Sergeant: Jamel Rouse III, M.D. 37 Because ethnic data is not always readily available, this report includes an eGFR for both -Americans and non- Americans. The National Kidney Disease Education Program (NKDEP) does not endorse the use of the MDRD equation for patients that are not between the ages of 18 and 70, are , have extremes of body size, muscle mass, or nutritional status, or are non- or non-. According to the National Kidney Foundation, irrespective of diagnosis, the stage of the disease is based on the level of kidney function: Stage Description GFR(mL/min/1.73 m(2)) 1 Kidney damage with normal or decreased GFR 90 2 Kidney damage with mild decrease in GFR 60-89 3 Moderate decrease in GFR 30-59 4 Severe decrease in GFR 15-29 5 Kidney failure <15 (or dialysis) 38 HDL Interpretation: Undesirable: High Risk: Less than 40 mg/dL Desirable: Low Risk: Greater than 60 mg/dL 39 LDL Interpretation: Low Risk Optimal Level: LDL Less than 100 mg/dL Near or Above Optimal: LDL 100-129 mg/dL Borderline High Risk: LDL 130-159 mg/dL High Risk: LDL 160-189 mg/dL Very High Risk: LDL Greater than 189 mg/dL 40 Because ethnic data is not always readily available, this report includes an eGFR for both -Americans and non- Americans. The National Kidney Disease Education Program (NKDEP) does not endorse the use of the MDRD equation for patients that are not between the ages of 18 and 70, are , have extremes of body size, muscle mass, or nutritional status, or are non- or non-. According to the National Kidney Foundation, irrespective of diagnosis, the stage of the disease is based on the level of kidney function: Stage Description GFR(mL/min/1.73 m(2)) 1 Kidney damage with normal or decreased GFR 90 2 Kidney damage with mild decrease in GFR 60-89 3 Moderate decrease in GFR 30-59 4 Severe decrease in GFR 15-29 5 Kidney failure <15 (or dialysis) 41 FASTING 42 -- REFERENCE VALUE -- 25-HYDROXY D TOTAL (D2+D3) Optimum levels in the normal population are 25-80 Test Performed by: [address] [address] Intelligence Senior Sergeant: Jamel Rouse III, M.D. 43 A metabolite of Naproxen, O-desmethylnaproxen, has been shown to interfere with the [place] method for measuring total bilirubin. Samples from patients who have taken Naproxen have shown spurious elevation in total bilirubin levels. 44 Please note updated reference range, effective 12/28/09 45 Anion gap measurement may be of limited value in the presence of any alkalosis, especially in a combined acid base disorder. . 46 Because ethnic data is not always readily available, this report includes an eGFR for both -Americans and non- Americans. The National Kidney Disease Education Program (NKDEP) does not endorse the use of the MDRD equation for patients that are not between the ages of 18 and 70, are , have extremes of body size, muscle mass, or nutritional status, or are non- or non-. According to the National Kidney Foundation, irrespective of diagnosis, the stage of the disease is based on the level of kidney function: Stage Description GFR(mL/min/1.73 m(2)) 1 Kidney damage with normal or decreased GFR 90 2 Kidney damage with mild decrease in GFR 60-89 3 Moderate decrease in GFR 30-59 4 Severe decrease in GFR 15-29 5 Kidney failure <15 (or dialysis) 47 CHOLESTEROL INTERPRETATION: Desirable: Less than 200 MG/DL Borderline-High Risk: 200-239 MG/DL High-Risk: 240 MG/DL and over 48 HDL INTERPRETATION: Undesirable: High Risk: Less than 40 MG/DL Desirable: Low Risk: Greater than 60 MG/DL 49 LDL INTERPRETATION: Low Risk Optimal Level: LDL Less than 100 MG/DL Near or Above Optimal: LDL 100-129 MG/DL Borderline High Risk: LDL 130-159 MG/DL High Risk: LDL 160-189 MG/DL Very High Risk: LDL Greater than 189 MG/DL 50 A metabolite of Naproxen, O-desmethylnaproxen, has been shown to interfere with the [place] method for measuring total bilirubin. Samples from patients who have taken Naproxen have shown spurious elevation in total bilirubin levels. 51 Please note updated reference range, effective 12/28/09 52 Anion gap measurement may be of limited value in the presence of any alkalosis, especially in a combined acid base disorder. . 53 Because ethnic data is not always readily available, this report includes an eGFR for both -Americans and non- Americans. The National Kidney Disease Education Program (NKDEP) does not endorse the use of the MDRD equation for patients that are not between the ages of 18 and 70, are , have extremes of body size, muscle mass, or nutritional status, or are non- or non-. According to the National Kidney Foundation, irrespective of diagnosis, the stage of the disease is based on the level of kidney function: Stage Description GFR(mL/min/1.73 m(2)) 1 Kidney damage with normal or decreased GFR 90 2 Kidney damage with mild decrease in GFR 60-89 3 Moderate decrease in GFR 30-59 4 Severe decrease in GFR 15-29 5 Kidney failure <15 (or dialysis) 54 -- REFERENCE VALUE -- 25-HYDROXY D TOTAL (D2+D3) Optimum levels in the normal population are 25-80 Test Performed by: [facility] Dpt of Lab Med and Pathology [address] [place], [place] [id number] Intelligence Senior Sergeant: Jamel Rouse III, M.D. 55 A metabolite of Naproxen, O-desmethylnaproxen, has been shown to interfere with the [place] method for measuring total bilirubin. Samples from patients who have taken Naproxen have shown spurious elevation in total bilirubin levels. 56 Please note updated reference range, effective 12/28/09 57 APPROXIMATELY 450 ML OF BLOOD REMOVED. 58 A metabolite of Naproxen, O-desmethylnaproxen, has been shown to interfere with the [place] method for measuring total bilirubin. Samples from patients who have taken Naproxen have shown spurious elevation in total bilirubin levels. 59 UNABLE TO CALCULATE IND.BILI D.BILI IS <0.1 Please note updated reference range, effective 12/28/09 60 Anion gap measurement may be of limited value in the presence of any alkalosis, especially in a combined acid base disorder. . 61 A metabolite of Naproxen, O-desmethylnaproxen, has been shown to interfere with the [place] method for measuring total bilirubin. Samples from patients who have taken Naproxen have shown spurious elevation in total bilirubin levels. 62 Because ethnic data is not always readily available, this report includes an eGFR for both -Americans and non- Americans. The National Kidney Disease Education Program (NKDEP) does not endorse the use of the MDRD equation for patients that are not between the ages of 18 and 70, are , have extremes of body size, muscle mass, or nutritional status, or are non- or non-. According to the National Kidney Foundation, irrespective of diagnosis, the stage of the disease is based on the level of kidney function: Stage Description GFR(mL/min/1.73 m(2)) 1 Kidney damage with normal or decreased GFR 90 2 Kidney damage with mild decrease in GFR 60-89 3 Moderate decrease in GFR 30-59 4 Severe decrease in GFR 15-29 5 Kidney failure <15 (or dialysis) 63 CHOLESTEROL INTERPRETATION: Desirable: Less than 200 MG/DL Borderline-High Risk: 200-239 MG/DL High-Risk: 240 MG/DL and over 64 HDL INTERPRETATION: Undesirable: High Risk: Less than 40 MG/DL Desirable: Low Risk: Greater than 60 MG/DL 65 LDL INTERPRETATION: Low Risk Optimal Level: LDL Less than 100 MG/DL Near or Above Optimal: LDL 100-129 MG/DL Borderline High Risk: LDL 130-159 MG/DL High Risk: LDL 160-189 MG/DL Very High Risk: LDL Greater than 189 MG/DL 66 Interpretation: Negative (<0.1) Test Performed by: [facility] Dpt of Lab Med and Pathology [address] [place] [address] Intelligence Senior Sergeant: Jamel Rouse III, M.D. 67 REVIEWED BY NORMA MUÑIZ MD 68 A metabolite of Naproxen, O-desmethylnaproxen, has been shown to interfere with the [place] method for measuring total bilirubin. Samples from patients who have taken Naproxen have shown spurious elevation in total bilirubin levels. 69 APPROXIMATELY 450 ML OF BLOOD REMOVED. VMATSON/RPRESTON ON 70 DO NOT PHLEBOTOMIZE IF HH IS LES THAN 11.0 AND 33.0 71 Anion gap measurement may be of limited value in the presence of any alkalosis, especially in a combined acid base disorder. . 72 Note change in reference range as of 01/28/08. The change was based on recommendations from the [place] [employer]. 73 Please note change in reference range effective 07 . 74 CHOLESTEROL INTERPRETATION: Desirable: Less than 200 MG/DL Borderline-High Risk: 200-239 MG/DL High-Risk: 240 MG/DL and over 75 HDL INTERPRETATION: Undesirable: High Risk: Less than 40 MG/DL Desirable: Low Risk: Greater than 60 MG/DL 76 LDL INTERPRETATION: Low Risk Optimal Level: LDL Less than 100 MG/DL Near or Above Optimal: LDL 100-129 MG/DL Borderline High Risk: LDL 130-159 MG/DL High Risk: LDL 160-189 MG/DL Very High Risk: LDL Greater than 189 MG/DL 77 APPROXIMATELY 450 ML OF BLOOD REMOVED. 78 PLEASE NOTE NEW REFERENCE RANGE EFFECTIVE 07 ASSAY BY IMMUNOCHEMILUMINOMETRIC ASSAY ON THE [employer] [id number]. VALUES OBTAINED WITH DIFFERENT METHODS OR KITS CANNOT BE USED INTERCHANGEABLY FOR PATIENT MONITORING. RESULTS CANNOT BE INTERPRETED ABSOLUTE EVIDENCE OF THE PRESENCE OR ABSENCE OF MALIGNANCY. THE TEST IS NOT INTERPRETABLE IN . TEST PERFORMED BY: [facility]. [address] [place] [phone] 79 LOOK FOR POSSIBLE CHLONORCHIS OR E. HISTOLYTICA ALSO REC'D C S MEDIUM LOOK FOR POSSIBLE CHLONORCHIS OR E. HISTOLYTICA LOOK FOR POSSIBLE CHLONORCHIS OR E. HISTOLYTICA LOOK FOR POSSIBLE CHLONORCHIS OR E. HISTOLYTICA LOOK FOR POSSIBLE CHLONORCHIS OR E. HISTOLYTICA LOOK FOR POSSIBLE CHLONORCHIS OR E. HISTOLYTICA LOOK FOR POSSIBLE CHLONORCHIS OR E. HISTOLYTICA LOOK FOR POSSIBLE CHLONORCHIS OR E. HISTOLYTICA LOOK FOR POSSIBLE CHLONORCHIS OR E. HISTOLYTICA LOOK FOR POSSIBLE CHLONORCHIS OR E. HISTOLYTICA LOOK FOR POSSIBLE CHLONORCHIS OR E. HISTOLYTICA LOOK FOR POSSIBLE CHLONORCHIS OR E. HISTOLYTICA LOOK FOR POSSIBLE CHLONORCHIS OR E. HISTOLYTICA LOOK FOR POSSIBLE CHLONORCHIS OR E. HISTOLYTICA LOOK FOR POSSIBLE CHLONORCHIS OR E. HISTOLYTICA LOOK FOR POSSIBLE CHLONORCHIS OR E. HISTOLYTICA LOOK FOR POSSIBLE CHLONORCHIS OR E. HISTOLYTICA LOOK FOR POSSIBLE CHLONORCHIS OR E. HISTOLYTICA LOOK FOR POSSIBLE CHLONORCHIS OR E. HISTOLYTICA LOOK FOR POSSIBLE CHLONORCHIS OR E. HISTOLYTICA LOOK FOR POSSIBLE CHLONORCHIS OR E. HISTOLYTICA LOOK FOR POSSIBLE CHLONORCHIS OR E. HISTOLYTICA LOOK FOR POSSIBLE CHLONORCHIS OR E. HISTOLYTICA LOOK FOR POSSIBLE CHLONORCHIS OR E. HISTOLYTICA LOOK FOR POSSIBLE CHLONORCHIS OR E. HISTOLYTICA LOOK FOR POSSIBLE CHLONORCHIS OR E. HISTOLYTICA LOOK FOR POSSIBLE CHLONORCHIS OR E. HISTOLYTICA LOOK FOR POSSIBLE CHLONORCHIS OR E. HISTOLYTICA LOOK FOR POSSIBLE CHLONORCHIS OR E. HISTOLYTICA LOOK FOR POSSIBLE CHLONORCHIS OR E. HISTOLYTICA LOOK FOR POSSIBLE CHLONORCHIS OR E. HISTOLYTICA LOOK FOR POSSIBLE CHLONORCHIS OR E. HISTOLYTICA LOOK FOR POSSIBLE CHLONORCHIS OR E. HISTOLYTICA LOOK FOR POSSIBLE CHLONORCHIS OR E. HISTOLYTICA LOOK FOR POSSIBLE CHLONORCHIS OR E. HISTOLYTICA LOOK FOR POSSIBLE CHLONORCHIS OR E. HISTOLYTICA LOOK FOR POSSIBLE CHLONORCHIS OR E. HISTOLYTICA LOOK FOR POSSIBLE CHLONORCHIS OR E. HISTOLYTICA LOOK FOR POSSIBLE CHLONORCHIS OR E. HISTOLYTICA LOOK FOR POSSIBLE CHLONORCHIS OR E. HISTOLYTICA LOOK FOR POSSIBLE CHLONORCHIS OR E. HISTOLYTICA LOOK FOR POSSIBLE CHLONORCHIS OR E. HISTOLYTICA LOOK FOR POSSIBLE CHLONORCHIS OR E. HISTOLYTICA LOOK FOR POSSIBLE CHLONORCHIS OR E. HISTOLYTICA LOOK FOR POSSIBLE CHLONORCHIS OR E. HISTOLYTICA LOOK FOR POSSIBLE CHLONORCHIS OR E. HISTOLYTICA LOOK FOR POSSIBLE CHLONORCHIS OR E. HISTOLYTICA LOOK FOR POSSIBLE CHLONORCHIS OR E. HISTOLYTICA LOOK FOR POSSIBLE CHLONORCHIS OR E. HISTOLYTICA LOOK FOR POSSIBLE CHLONORCHIS OR E. HISTOLYTICA LOOK FOR POSSIBLE CHLONORCHIS OR E. HISTOLYTICA LOOK FOR POSSIBLE CHLONORCHIS OR E. HISTOLYTICA LOOK FOR POSSIBLE CHLONORCHIS OR E. HISTOLYTICA LOOK FOR POSSIBLE CHLONORCHIS OR E. HISTOLYTICA LOOK FOR POSSIBLE CHLONORCHIS OR E. HISTOLYTICA LOOK FOR POSSIBLE CHLONORCHIS OR E. HISTOLYTICA LOOK FOR POSSIBLE CHLONORCHIS OR E. HISTOLYTICA LOOK FOR POSSIBLE CHLONORCHIS OR E. HISTOLYTICA LOOK FOR POSSIBLE CHLONORCHIS OR E. HISTOLYTICA LOOK FOR POSSIBLE CHLONORCHIS OR E. HISTOLYTICA LOOK FOR POSSIBLE CHLONORCHIS OR E. HISTOLYTICA LOOK FOR POSSIBLE CHLONORCHIS OR E. HISTOLYTICA LOOK FOR POSSIBLE CHLONORCHIS OR E. HISTOLYTICA LOOK FOR POSSIBLE CHLONORCHIS OR E. HISTOLYTICA LOOK FOR POSSIBLE CHLONORCHIS OR E. HISTOLYTICA LOOK FOR POSSIBLE CHLONORCHIS OR E. HISTOLYTICA LOOK FOR POSSIBLE CHLONORCHIS OR E. HISTOLYTICA LOOK FOR POSSIBLE CHLONORCHIS OR E. HISTOLYTICA LOOK FOR POSSIBLE CHLONORCHIS OR E. HISTOLYTICA LOOK FOR POSSIBLE CHLONORCHIS OR E. HISTOLYTICA LOOK FOR POSSIBLE CHLONORCHIS OR E. HISTOLYTICA LOOK FOR POSSIBLE CHLONORCHIS OR E. HISTOLYTICA LOOK FOR POSSIBLE CHLONORCHIS OR E. HISTOLYTICA LOOK FOR POSSIBLE CHLONORCHIS OR E. HISTOLYTICA LOOK FOR POSSIBLE CHLONORCHIS OR E. HISTOLYTICA LOOK FOR POSSIBLE CHLONORCHIS OR E. HISTOLYTICA LOOK FOR POSSIBLE CHLONORCHIS OR E. HISTOLYTICA LOOK FOR POSSIBLE CHLONORCHIS OR E. HISTOLYTICA LOOK FOR POSSIBLE CHLONORCHIS OR E. HISTOLYTICA LOOK FOR POSSIBLE CHLONORCHIS OR E. HISTOLYTICA LOOK FOR POSSIBLE CHLONORCHIS OR E. HISTOLYTICA LOOK FOR POSSIBLE CHLONORCHIS OR E. HISTOLYTICA LOOK FOR POSSIBLE CHLONORCHIS OR E. HISTOLYTICA LOOK FOR POSSIBLE CHLONORCHIS OR E. HISTOLYTICA LOOK FOR POSSIBLE CHLONORCHIS OR E. HISTOLYTICA LOOK FOR POSSIBLE CHLONORCHIS OR E. HISTOLYTICA LOOK FOR POSSIBLE CHLONORCHIS OR E. HISTOLYTICA LOOK FOR POSSIBLE CHLONORCHIS OR E. HISTOLYTICA LOOK FOR POSSIBLE CHLONORCHIS OR E. HISTOLYTICA LOOK FOR POSSIBLE CHLONORCHIS OR E. HISTOLYTICA LOOK FOR POSSIBLE CHLONORCHIS OR E. HISTOLYTICA LOOK FOR POSSIBLE CHLONORCHIS OR E. HISTOLYTICA LOOK FOR POSSIBLE CHLONORCHIS OR E. HISTOLYTICA LOOK FOR POSSIBLE CHLONORCHIS OR E. HISTOLYTICA LOOK FOR POSSIBLE CHLONORCHIS OR E. HISTOLYTICA LOOK FOR POSSIBLE CHLONORCHIS OR E. HISTOLYTICA LOOK FOR POSSIBLE CHLONORCHIS OR E. HISTOLYTICA LOOK FOR POSSIBLE CHLONORCHIS OR E. HISTOLYTICA LOOK FOR POSSIBLE CHLONORCHIS OR E. HISTOLYTICA LOOK FOR POSSIBLE CHLONORCHIS OR E. HISTOLYTICA LOOK FOR POSSIBLE CHLONORCHIS OR E. HISTOLYTICA LOOK FOR POSSIBLE CHLONORCHIS OR E. HISTOLYTICA LOOK FOR POSSIBLE CHLONORCHIS OR E. HISTOLYTICA LOOK FOR POSSIBLE CHLONORCHIS OR E. HISTOLYTICA LOOK FOR POSSIBLE CHLONORCHIS OR E. HISTOLYTICA LOOK FOR POSSIBLE CHLONORCHIS OR E. HISTOLYTICA LOOK FOR POSSIBLE CHLONORCHIS OR E. HISTOLYTICA LOOK FOR POSSIBLE CHLONORCHIS OR E. HISTOLYTICA LOOK FOR POSSIBLE CHLONORCHIS OR E. HISTOLYTICA LOOK FOR POSSIBLE CHLONORCHIS OR E. HISTOLYTICA LOOK FOR POSSIBLE CHLONORCHIS OR E. HISTOLYTICA LOOK FOR POSSIBLE CHLONORCHIS OR E. HISTOLYTICA LOOK FOR POSSIBLE CHLONORCHIS OR E. HISTOLYTICA LOOK FOR POSSIBLE CHLONORCHIS OR E. HISTOLYTICA LOOK FOR POSSIBLE CHLONORCHIS OR E. HISTOLYTICA LOOK FOR POSSIBLE CHLONORCHIS OR E. HISTOLYTICA LOOK FOR POSSIBLE CHLONORCHIS OR E. HISTOLYTICA LOOK FOR POSSIBLE CHLONORCHIS OR E. HISTOLYTICA LOOK FOR POSSIBLE CHLONORCHIS OR E. HISTOLYTICA LOOK FOR POSSIBLE CHLONORCHIS OR E. HISTOLYTICA LOOK FOR POSSIBLE CHLONORCHIS OR E. HISTOLYTICA LOOK FOR POSSIBLE CHLONORCHIS OR E. HISTOLYTICA LOOK FOR POSSIBLE CHLONORCHIS OR E. HISTOLYTICA LOOK FOR POSSIBLE CHLONORCHIS OR E. HISTOLYTICA LOOK FOR POSSIBLE CHLONORCHIS OR E. HISTOLYTICA LOOK FOR POSSIBLE CHLONORCHIS OR E. HISTOLYTICA LOOK FOR POSSIBLE CHLONORCHIS OR E. HISTOLYTICA LOOK FOR POSSIBLE CHLONORCHIS OR E. HISTOLYTICA LOOK FOR POSSIBLE CHLONORCHIS OR E. HISTOLYTICA LOOK FOR POSSIBLE CHLONORCHIS OR E. HISTOLYTICA LOOK FOR POSSIBLE CHLONORCHIS OR E. HISTOLYTICA LOOK FOR POSSIBLE CHLONORCHIS OR E. HISTOLYTICA LOOK FOR POSSIBLE CHLONORCHIS OR E. HISTOLYTICA LOOK FOR POSSIBLE CHLONORCHIS OR E. HISTOLYTICA LOOK FOR POSSIBLE CHLONORCHIS OR E. HISTOLYTICA LOOK FOR POSSIBLE CHLONORCHIS OR E. HISTOLYTICA LOOK FOR POSSIBLE CHLONORCHIS OR E. HISTOLYTICA LOOK FOR POSSIBLE CHLONORCHIS OR E. HISTOLYTICA LOOK FOR POSSIBLE CHLONORCHIS OR E. HISTOLYTICA LOOK FOR POSSIBLE CHLONORCHIS OR E. HISTOLYTICA LOOK FOR POSSIBLE CHLONORCHIS OR E. HISTOLYTICA LOOK FOR POSSIBLE CHLONORCHIS OR E. HISTOLYTICA LOOK FOR POSSIBLE CHLONORCHIS OR E. HISTOLYTICA LOOK FOR POSSIBLE CHLONORCHIS OR E. HISTOLYTICA LOOK FOR POSSIBLE CHLONORCHIS OR E. HISTOLYTICA LOOK FOR POSSIBLE CHLONORCHIS OR E. HISTOLYTICA LOOK FOR POSSIBLE CHLONORCHIS OR E. HISTOLYTICA LOOK FOR POSSIBLE CHLONORCHIS OR E. HISTOLYTICA LOOK FOR POSSIBLE CHLONORCHIS OR E. HISTOLYTICA LOOK FOR POSSIBLE CHLONORCHIS OR E. HISTOLYTICA LOOK FOR POSSIBLE CHLONORCHIS OR E. HISTOLYTICA LOOK FOR POSSIBLE CHLONORCHIS OR E. HISTOLYTICA LOOK FOR POSSIBLE CHLONORCHIS OR E. HISTOLYTICA LOOK FOR POSSIBLE CHLONORCHIS OR E. HISTOLYTICA LOOK FOR POSSIBLE CHLONORCHIS OR E. HISTOLYTICA LOOK FOR POSSIBLE CHLONORCHIS OR E. HISTOLYTICA LOOK FOR POSSIBLE CHLONORCHIS OR E. HISTOLYTICA LOOK FOR POSSIBLE CHLONORCHIS OR E. HISTOLYTICA LOOK FOR POSSIBLE CHLONORCHIS OR E. HISTOLYTICA LOOK FOR POSSIBLE CHLONORCHIS OR E. HISTOLYTICA LOOK FOR POSSIBLE CHLONORCHIS OR E. HISTOLYTICA LOOK FOR POSSIBLE CHLONORCHIS OR E. HISTOLYTICA LOOK FOR POSSIBLE CHLONORCHIS OR E. HISTOLYTICA LOOK FOR POSSIBLE CHLONORCHIS OR E. HISTOLYTICA LOOK FOR POSSIBLE CHLONORCHIS OR E. HISTOLYTICA LOOK FOR POSSIBLE CHLONORCHIS OR E. HISTOLYTICA LOOK FOR POSSIBLE CHLONORCHIS OR E. HISTOLYTICA LOOK FOR POSSIBLE CHLONORCHIS OR E. HISTOLYTICA LOOK FOR POSSIBLE CHLONORCHIS OR E. HISTOLYTICA LOOK FOR POSSIBLE CHLONORCHIS OR E. HISTOLYTICA LOOK FOR POSSIBLE CHLONORCHIS OR E. HISTOLYTICA LOOK FOR POSSIBLE CHLONORCHIS OR E. HISTOLYTICA LOOK FOR POSSIBLE CHLONORCHIS OR E. HISTOLYTICA LOOK FOR POSSIBLE CHLONORCHIS OR E. HISTOLYTICA LOOK FOR POSSIBLE CHLONORCHIS OR E. HISTOLYTICA LOOK FOR POSSIBLE CHLONORCHIS OR E. HISTOLYTICA LOOK FOR POSSIBLE CHLONORCHIS OR E. HISTOLYTICA LOOK FOR POSSIBLE CHLONORCHIS OR E. HISTOLYTICA LOOK FOR POSSIBLE CHLONORCHIS OR E. HISTOLYTICA LOOK FOR POSSIBLE CHLONORCHIS OR E. HISTOLYTICA LOOK FOR POSSIBLE CHLONORCHIS OR E. HISTOLYTICA LOOK FOR POSSIBLE CHLONORCHIS OR E. HISTOLYTICA LOOK FOR POSSIBLE CHLONORCHIS OR E. HISTOLYTICA LOOK FOR POSSIBLE CHLONORCHIS OR E. HISTOLYTICA LOOK FOR POSSIBLE CHLONORCHIS OR E. HISTOLYTICA LOOK FOR POSSIBLE CHLONORCHIS OR E. HISTOLYTICA LOOK FOR POSSIBLE CHLONORCHIS OR E. HISTOLYTICA LOOK FOR POSSIBLE CHLONORCHIS OR E. HISTOLYTICA LOOK FOR POSSIBLE CHLONORCHIS OR E. HISTOLYTICA LOOK FOR POSSIBLE CHLONORCHIS OR E. HISTOLYTICA LOOK FOR POSSIBLE CHLONORCHIS OR E. HISTOLYTICA LOOK FOR POSSIBLE CHLONORCHIS OR E. HISTOLYTICA LOOK FOR POSSIBLE CHLONORCHIS OR E. HISTOLYTICA LOOK FOR POSSIBLE CHLONORCHIS OR E. HISTOLYTICA LOOK FOR POSSIBLE CHLONORCHIS OR E. HISTOLYTICA LOOK FOR POSSIBLE CHLONORCHIS OR E. HISTOLYTICA LOOK FOR POSSIBLE CHLONORCHIS OR E. HISTOLYTICA LOOK FOR POSSIBLE CHLONORCHIS OR E. HISTOLYTICA LOOK FOR POSSIBLE CHLONORCHIS OR E. HISTOLYTICA LOOK FOR POSSIBLE CHLONORCHIS OR E. HISTOLYTICA LOOK FOR POSSIBLE CHLONORCHIS OR E. HISTOLYTICA LOOK FOR POSSIBLE CHLONORCHIS OR E. HISTOLYTICA LOOK FOR POSSIBLE CHLONORCHIS OR E. HISTOLYTICA LOOK FOR POSSIBLE CHLONORCHIS OR E. HISTOLYTICA LOOK FOR POSSIBLE CHLONORCHIS OR E. HISTOLYTICA LOOK FOR POSSIBLE CHLONORCHIS OR E. HISTOLYTICA LOOK FOR POSSIBLE CHLONORCHIS OR E. HISTOLYTICA LOOK FOR POSSIBLE CHLONORCHIS OR E. HISTOL 80 Giardia and cryptosporidium antigen testing performed by immunoassay. If patient is immunocompromised or has traveled to or is from a developing country, a full ova and parasite exam with microscopic (OPMIC) is recommended. All samples will be held one month in case full ova and parasite testing is requested. Contact the Microbiology Department at [phone]. N^NEGATIVE BY IMMUNOASSAY^CRY N^NEGATIVE BY IMMUNOASSAY^JUAN JOSÉ 81 NO OVA PARASITES OBSERVED BY EDWIN ACETATE CONCENTRATION. NO CYSTS /OR TROPHOZOITES OBSERVED BY TRICHROME STAIN. CRYPTOSPORIDIUM NOT ROUTINELY PERFORMED WITH OVA AND PARASITE TESTING. 82 SPECIMEN CONTAINS NORMAL URETHRAL OR PERINEAL GERA AND DOES NOT SUGGEST URINARY TRACT INFECTION 50^25-50,000 ORGANISMS/ML (MODERATE)^CCU 83 Anion gap measurement may be of limited value in the presence of any alkalosis, especially in a combined acid base disorder. . Procedures Date CPT Code Description Status 12/12/2017 96782 Inject/Drain Joint/Bursa Major W/O US Completed 02/19/2017 Mammogram Completed 01/06/2017 22387 Diffusing Capacity Completed 01/06/2017 37662 Plethysmography Determination Lung Volumes & Per Airway Completed Resist 01/06/2017 74703 Pulmonary Function><Bronchodil Completed 02/13/2016 Mammogram Completed 08/24/2015 49840 ECHO Transthoracic, Real-Time 2D With Doppler And Color Completed Flow 05/16/2015 Colonoscopy Completed 01/13/2015 Mammogram Completed 09/09/2014 48105 EKG Tracing & Interpretation Completed 11/18/2013 Mammogram Completed 01/01/2013 94317 ECHO Transthoracic, Real-Time 2D With Doppler And Color Completed Flow 01/31/2012 Mammogram Completed 09/23/2011 Bone Mineral Density Test Completed 03/20/2011 11437 EKG Tracing & Interpretation Completed 01/11/2011 Mammogram Completed 11/27/2010 66404 Noninvasive Ear Or Pulse Oximetry For Oxygen Saturation Completed 03/30/2010 88818 Admin Of Inj Completed 08/18/2009 Mammogram Completed 10/19/2007 Mammogram Completed 03/17/2006 47718 ECHO/Stress Completed 03/17/2006 86756 ECHO/Stress Completed 03/17/2006 32825 Stress Test Completed 11/19/2005 Colonoscopy Completed 07/12/2003 01573 Echocardiogram Completed 07/12/2003 67137 Pulse Doppler & Continuous Wave Completed 07/12/2003 24672 Color Doppler Completed Encounters Type Date Location Provider CPT E/M Dx Office Visit 09/11/2017 [facility] Internal Víctor Cochran, [address] J45.991 11:40a Medicine - Tbkathrin Pollack M.D.,FACP T75.3xxA Office Visit 08/25/2017 3:40p [facility] Internal Jose Agustin, [address], M.D. Office Visit 01/24/2017 9:30a [place] [address] M18.11 Of C.M.AGriffin G56.21 Office Visit 12/18/2016 1:00p [facility] Víctor Cochran, [address] Z00.01 Medicine Aliza Tbkathrin Pollack M.D.,FACP E83.110 M25.531 R05 Office Visit 08/17/2015 10:30a [facility] Víctor Cochran, [address], M.D.,FACP E83.110 E83.52 R05 I42.9 Z23 Office Visit 03/08/2015 4:20p [facility] Víctor [place], [address] S33.6xxA Medicine - [place] Ranjeet MYaneth,FACP Office Visit 09/09/2014 1:00p [facility] Sebastián Guevara M.D. [address] 465.9 Medicine - [address] 786.2 240.9 785.0 Office Visit 07/13/2014 1:00p [facility] Medicine [facility], [address] V70.0 - [place] Ranjeet Rodriguez,FACP 272.0 275.01 275.42 Office Visit 04/11/2014 2:00p [facility] Medicine [facility], [address] 786.50 - Jess Rodriguez,FACP 426.2 Office Visit 12/31/2012 3:00p [facility] Medicine VíctorMagan Cochran, [address]79[address] V70.0 - Jess Rodriguez,FACP 571.8 275.01 272.0 790.21 396.9 Office Visit 09/19/2011 1:20p [facility] Medicine Víctor D. [place], [address] V70.0 - Jess Rodriguez,FACP 275.01 571.8 272.0 477.0 268.9 Office Visit 03/20/2011 3:40p DO Not Use Prototype Engineer Manager AT [facility], [address] 426.3 Herndonterrence Rodriguez,FACP 275.42 275.01 Office Visit 11/27/2010 10:30a DO Not Use Prototype Engineer Manager AT [facility] [address] 692.89 [facility] 466.0 477.9 Office Visit 08/17/2010 2:00p DO Not Use Prototype Engineer Manager [facility] [place] [facility] [address] V70.0 Herndonterrence Rodriguez,FACP 571.8 275.09 790.21 272.0 726.19 Office Visit 08/16/2008 2:40p DO Not Use Prototype Engineer Manager AT [facility] [facility] [address] 780.4 Herndonterrence Rodriguez,FACP 786.50 401.1 571.40 Office Visit 04/23/2007 9:30a DO Not Use Prototype Engineer Manager AT [facility], [address] 562.11 Nela Rodriguez,FACP Office Visit 04/20/2007 10:30a DO Not Use Prototype Engineer Manager AT Víctor Cochran, [address] 575.0 Nela Rodriguez,FACP 535.40 Plan of Care Future Appointment(s):12/21/2018 3:00 pm - Víctor Cochran M.D.,FACP at [facility] Medicine - [address]01/26/2018 11:15 am - Robb Pisano MD at [facility]12/19/2017 - Víctor Cochran M.D.,FACPZ00.00 Encntr for general adult medical exam w/o abnormal findingsComments:VACCINES: Flu shot every year in the fall.Shingrex is the shingles vaccine that is more effective. Itis a 2 shot series that has to be done at the drug store.You are due for your tetnus vaccine. You can get that immunization here.SCREENING: Mammogram 12/2016 - no concernsColonoscopy was 2014, due in 05/2020Pap - discuss with .Bone Mass Measurements: Per discussion with Dr. Cochran.Follow up: Print DM/HM summary for patient. Obtain Health Care Proxy from patient.E83.110 Hereditary hemochromatosisComments:Continue omeprazole per Dr. Kruse's recommendations.M18.11 Unil primary osteoarth of first carpometacarp joint, r handComments:Continue brace as recommended by orthopedics.M23.301 Oth meniscus derangements, unsp lateral meniscus, left kneeComments:Continue with left knee brace and start PT at end of the month. Follow up with orthopedics.K21.9 Gastro- esophageal reflux disease without qxqgilatcqsO19.0 Age-related osteoporosis w/o current pathological fractureNew Xrays:Dexa Screen Lumbar (Hips)I10 Essential ( primary) hypertensionComments:You are meeting target blood pressure. Continue low salt diet.Aerobic exercise 30 minutes 5 times per week should improve blood pressure.Goals:Blood pressure goal <140/90 in general. Blood pressure goal & lt;150/90 in people older than 75. Blood pressure goal <130/85 in diabetic patients. Goal BMI is less than 25.
--- OUTSIDE RECORDS SUMMARY | 2017-12-28 14:37 | XMS REPORT ---
:1940 External Reference #:[id number] Author Organization [facility] Address [address] [place] [address] Phone [phone] Care Team Providers Name Role Phone Víctor oCchran MD Care Team Information Hair Preparer Unavailable Víctor Cochran MD Primary Care Physician Unavailable Payers Type Date Identification Numbers Payment Provider Subscriber Medicare Primary Effective: Policy Number: Medicare Doris Dietz 2005 [id number] PayID: [id number] [address] [place] [address] Medigap Part B Effective: 2005 Policy Number: [facility] Joseph Dietz [id number] PayID: [id number] [address] [place] [address] Problems Date Description Provider Status Onset: 01/12/2017 [...] Active Tablets 50-12.5mg 90tab take 1 Víctor Potassium/[place] /2010 s tablet every [place] Co[place]ran, chlorothiazide [...] 9.900 spray 1 J45.991 ml spray in [facility] - each nostril , M.D. 09/11 twice daily as needed Proventil HFA 01/12 Hx Aerosol 108(90Bas 6.700 inhale two e) [facility]Act mouth four , M.D. 09/11 times a day as needed Nabumetone 03/08 Hx Tablets 750mg 45tab take 1 S33.6xxA s tablet by [place] Co[place]ran, - mouth two M.D.,[facility] 08/16 times daily prn Flonase Allergy 09/27 Hx Suspension 50mcg/Act 9.900 2 sprays per ml nostril Guevara, - daily M.D. 08/16 Delsym 09/27 Hx Liquid ER 30mg/5ML 89ml 1 tablespoon by mouth Guevara, - once a day M.D. 08/16 Calcium-Vitamin 07/13 Hx Tablets 600-800mg 1 tab daily -Unit [place] Cochran, - M.D.,[facility] 12/05 Mytussin ac 09/18 Hx Syrup 100-10mg/ 118ml 5 ml po 477.0 5ML q4-6h Ot[place] Cochran, - M.D.,[facility] 12/31 Azithromycin 11/27 Hx Tablets 250mg 6tabs 2 tabs po qd 466.0 x1 day, 1 [place] Cochran, - tab po qd x M.D.,[facility] 09/18 4 days Flonase 11/27 Hx Suspension 50mcg/Act 3mon 2 477.9 sprays/nostr [place] Cochran, - il/day M.D.,[facility] 12/31 Hydrocortisone 11/27 Hx 2.5% 50uni apply 692.89 Víctor ts sparingly to [place]. [place], - the affected M.D.,[facility] 07/13 areas twice /2014 daily more Mytussin ac 11/27 Hx Syrup 100-10mg/ 118ml 5 ml po 466.0 5ML q4-6h Aliza Jimenez M.D.,[facility] 09/18 Hyzaar 06/29 Hx Tablets 50-12.5 90tab po qam Víctor s Aliza Jimenez M.D.,[facility] 01/22 Avelox 04/23 Hx Tablets 400mg 9tabs qd for 9 562.11 Víctor days Aliza Jimenez M.D.,[facility] 08/16 Avalide 04/20 Hx Tablets 150-12.5 90tab 1 PO qd Víctor s Aliza Jimenez M.D.,[facility] 06/29 Ibuprofen 04/20 Hx Tablets 600mg tid prn Víctor Aliza Jimenez M.D.,[facility] 07/13 Calcium-Vitamin 04/20 Hx Tablets 500-125 bid Víctor [place] Aliza Jimenez M.D.,[facility] 07/13 Prilosec 04/[address] 20mg 180ca 1 po qd 535.40 Víctor ps Aliza Jimenez M.D.,[facility] 08/16 Multi Vitamin /00 Hx Tablets 1 [...] Code Status Date Vaccine Reaction Lot # [id number] Given 03/13/2017 Influenza Virus Vaccine, no immediate [id number] Quadrivalent, Split, reaction, pt Preservative Free tolerated well 05139 Given 02/26/2016 Influenza Virus Vaccine, [id number] Quadrivalent, Split, Preservative Free 82472 Given 08/17/2015 Pneumococcal Conjugate [id number] Vaccine 13 Valent For Intramuscular Use 34945 Given 04/20/2015 Influenza Virus Vaccine, [id number] Quadrivalent, Split, Preservative Free 48442 Given 04/01/2014 Flu Vaccine Split Virus [id number] Preservative Free For Indiv 3Yr Older 51686 Given 03/26/2013 Flu Vaccine Split Virus [id number] Preservative Free For Indiv 3Yr Older Q2038 Given 03/04/2012 Fluzone Vaccine [id number] Q2038 Given 03/18/2011 Fluzone Vaccine [id number] 04742 Given 03/30/2010 Influenza Virus 3Yrs & [id number] Over 19285 Given 06/27/2009 Influenza Virus Vaccine, [id number] Pandemic Formulation 22667 Given 03/23/2009 Influenza Virus 3Yrs & [id number] Over 84390 Given 03/23/2009 Influenza Virus 3Yrs & Over 85708 Given 06/27/2008 Zoster (Zostavax) 44878 Given 06/27/2008 Zoster (Zostavax) 24507 Given 06/27/2008 Zoster (Zostavax) [id number] 12042 Given 03/21/2008 Influenza Virus 3Yrs & [id number] Over 66941 Given 04/09/2007 Influenza Virus 3Yrs & Over 83710 Given 04/09/2007 Influenza Virus 3Yrs & [id number] Over 31086 Given 10/06/2006 Tdap - Tetanus/Diptheria/Acellula r Pertussis 54248 Given 12/24/2005 Pneumonia Vaccine Vital Signs Date [...] Ferritin 84 NG/ML 11.0-307 Lipid Panel - [facility] 08/08/2010 CPK (Creatine Kinase) 63 U/L 0-170 [...] Negative PH-Urine 6.0 5-9 Protein-Urine 1+ Negative Gxplayphxqcv-Du-UJY NEGATIVE Negative Specific [place]-Ur 1.012 1.010-1.030 Urinalysis W/Microscopic 04/22/2007 Ua Color YELLOW Ictotest-Urine POSITIVE (NEG) Appearance-Urine CLEAR Bacteria-Urine TRACE Bilirubin-Ur POSITIVE Negative Blood-Urine TRACE Negative Epith Cells-Ur MODERATE Esterase-Urine 2+ Negative Glucose-Urine NEGATIVE Negative Ketones-Urine NEGATIVE Negative Nitrite NEGATIVE Negative PH-Urine 6.0 5-9 Protein-Urine 1+ Negative RBC-Urine RARE 0-2 Mloxcqgstsxo-Fv-FMH NEGATIVE Negative Specific Mar[place]-Ur 1.012 1.010-1.030 WBC-Urine 2-5 0-5 Laboratory test [...] 10 HOUR Copy Result to: HAYLEY KRUSE ([id number]) 17 Desirable <150 Borderline high 150-199 High 200-499 Very High >500 18 Desirable <200 Borderline high 200-239 High >239 19 Low <40 Desirable: 40-60 High: >60 20 Desirable: <100 mg/dL Near Optimal: 100-129 mg/dL Borderline High: 130-159 mg/dL High: 160-189 mg/dL Very High: >189 mg/dL 21 SEE RESULT BELOW Name: DORIS DIETZ : [address]: Hayley Kruse MD Acct: [id number] Unit: [id number] AGE: 74 Location: ENDO Re05/16/15 SEX: F Status: REG REF SPEC: [id number] BEBE: 05/16/15-[address] [facility] [address]: Hayley Kruse MD REQ: [id number] RECD: 05/17/15 STATUS: YESICA CHAND DR: Víctor [...] performed at Main Lab DEPARTMENT OF PATHOLOGY, [address] [place] [address] Brice Dillon M.D. Director [facility] # [id number] RUN DATE: 05/18/15 [facility] LAB LIVE PAGE 2 Patient: DORIS DIETZ [id number] (Continued) GROSS DESCRIPTION (Continued) GROSS DESCRIPTION (Continued) [...] performed at Main Lab DEPARTMENT OF PATHOLOGY, [address] [place] [address] Brice Dillon M.D. Director [facility] # [id number] 22 Because ethnic data is not always [...] levels within this range. Test Performed by: [place] [address] [place]: Domingo Owusu II, M.D., Ph.D. 26 Test Performed by: [place] [address] [place]: Domingo Owusu II, M.D., Ph.D. 27 FASTING [...] <15 (or dialysis) 33 RUN DATE: 07/17/13 [facility] LAB LIVE PAGE 1 RUN TIME: [address] [place] [address] Specimen Inquiry Name: DORIS DIETZ : [address]: Hayley Kruse MD Acct: [id number] Unit: [id number] AGE: 72 Location: ENDO Re07/16/13 SEX: F Status: REG REF SPEC: [id number] BEBE: 07/16/[address] [facility] [address]: Hayley Kruse MD REQ: [id number] RECD: 07/16/13 STATUS: SADA CAHND DR: Víctor Cochran MD _ SOURCE: GAS ANTRUM SPDESC: ORDERED: Clotest Procedure Result Verified Site Clotest Final 07/17/13- 48 ML Clotest Negative END OF REPORT * ML=Testing performed at Main Lab DEPARTMENT OF PATHOLOGY, [address] [place] [address] Brice Dillon M.D. Director [facility] Permit #[id number] RUN DATE: 07/20/13 [facility] LAB LIVE PAGE 1 RUN TIME: [address] [place] [address], [place], [place] [address] Specimen Inquiry Name: VIRGIE DIETZLY Agustina : [address]: Hayley Kruse MD Acct: [id number] Unit: [id number] AGE: 72 Location: ENDO Re07/16/13 SEX: F Status: REG REF SPEC: [id number] BEBE: 07/16/13- SUBM DR: Hayley Kruse MD REQ: [id number] RECD: 07/16/13 STATUS: YESICA CHAND DR: Víctor [...] performed at Main Lab DEPARTMENT OF PATHOLOGY, [address] [place] [address] Brice Dillon M.D. Director [facility] Permit #[id number] 35 -- REFERENCE VALUE -- <6.0 Reference values are for non- subjects only; production of AFP elevates values in women. The testing method is an immunoenzymatic assay manufactured by [employer] and performed on the LP Amina DxI 800. Values obtained with different assay methods or kits may be different and cannot be used interchangeably. Test results cannot be interpreted as absolute evidence for the presence or absence of malignant disease. Alpha-Fetoprotein values are not interpretable in females for the investigation of malignant disease. Test Performed by: [place] [address] [place]: Jamel Rouse III, M.D. 36 The testing method is an immunoenzymatic assay manufactured by [employer] and performed on the LP Amina DxI 800. Values obtained with different assay methods or kits may be different and cannot be used interchangeably. Test results cannot be interpreted as absolute evidence for the presence or absence of malignant disease. Test Performed by: [place] [address] [place]: Jamel Rouse III, M.D. 37 Because ethnic [...] normal population are 25-80 Test Performed by: [address] [address] [place]: Jamel Rouse III, M.D. 43 A metabolite of Naproxen, O-desmethylnaproxen, has been shown to interfere with the [place] method for measuring total bilirubin. Samples from [...] has been shown to interfere with the [place] method for measuring total bilirubin. Samples from [...] normal population are 25-80 Test Performed by: [facility] Dpt of Lab Med and Pathology [address] [place], [place] [id number] [place]: Jamel Rouse III, M.D. 55 A metabolite of Naproxen, O-desmethylnaproxen, has been shown to interfere with the [place] method for measuring total bilirubin. Samples from [...] 66 Interpretation: Negative (<0.1) Test Performed by: [facility] Dpt of Lab Med and Pathology [address] [place] [address] [place]: Jamel Rouse III, M.D. 67 REVIEWED BY NORMA MUÑIZ MD 68 A metabolite of Naproxen, O-desmethylnaproxen, has been shown to interfere with the [place] method for measuring total bilirubin. Samples from [...] change was based on recommendations from the [place] [employer]. 73 Please note change in [...] 07 ASSAY BY IMMUNOCHEMILUMINOMETRIC ASSAY ON THE [employer] DXI-800. VALUES OBTAINED WITH DIFFERENT METHODS OR KITS CANNOT BE USED INTERCHANGEABLY FOR PATIENT MONITORING. RESULTS CANNOT BE INTERPRETED ABSOLUTE EVIDENCE OF THE PRESENCE OR ABSENCE OF MALIGNANCY. THE TEST IS NOT INTERPRETABLE IN . TEST PERFORMED BY: [employer] [address] [place] [phone] LOOK FOR POSSIBLE CHLONORCHIS OR E. [...] is requested. Contact the Microbiology Department at [phone]. N^NEGATIVE BY IMMUNOASSAY^CRY N^NEGATIVE BY IMMUNOASSAY^JUAN JOSÉ [...] Procedures Date CPT Code Description Status 12/12/2017 86820 Inject/Drain Joint/Bursa Major W/O US Completed 02/19/2017 Mammogram Completed 01/06/2017 52093 Diffusing Capacity Completed 01/06/2017 30123 Plethysmography Determination Lung Volumes & Per Airway Completed Resist 01/06/2017 67533 Pulmonary Function><Bronchodil Completed 02/13/2016 Mammogram Completed 08/24/2015 01690 ECHO Transthoracic, Real-Time 2D With Doppler And Color Completed Flow 05/16/2015 Colonoscopy Completed 01/13/2015 Mammogram Completed 09/09/2014 20626 EKG Tracing & Interpretation Completed 11/18/2013 Mammogram Completed 01/01/2013 93796 ECHO Transthoracic, Real-Time 2D With Doppler And Color Completed Flow 01/31/2012 Mammogram Completed 09/23/2011 Bone Mineral Density Test Completed 03/20/2011 46632 EKG Tracing & Interpretation Completed 01/11/2011 Mammogram Completed 11/27/2010 61620 Noninvasive Ear Or Pulse Oximetry For Oxygen Saturation Completed 03/30/2010 35538 Admin Of Inj Completed 08/18/2009 Mammogram Completed 10/19/2007 Mammogram Completed 03/17/2006 50048 ECHO/Stress Completed 03/17/2006 09529 ECHO/Stress Completed 03/17/2006 82893 Stress Test Completed 11/19/2005 Colonoscopy Completed 07/12/2003 82747 Echocardiogram Completed 07/12/2003 99694 Pulse Doppler & Continuous Wave Completed 07/12/2003 03009 Color Doppler Completed Encounters Type Date Location Provider CPT E/M Dx Office Visit 09/11/2017 [facility] Internal Víctor Cochran, [address] J45.991 11:40a Medicine - Tbkathrin Pollack M.D.,FACP T75.3xxA Office Visit 08/25/2017 3:40p [facility] Internal Jose Agustin, [address], M.D. Office Visit 01/24/2017 9:30a [place] [address] M18.11 Of C.M.AGriffin G56.21 Office Visit 12/18/2016 1:00p [facility] Internal Víctor Cochran, [address] Z00.01 Medicine Aliza Tbkathrin Pollack M.D.,FACP E83.110 M25.531 R05 Office Visit 08/17/2015 10:30a [facility] Internal Víctor Cochran, [address] [address]00.[address], M.D.,FACP E83.110 E83.52 R05 I42.9 Z23 Office Visit 03/08/2015 4:20p [facility] Internal Víctor [place], [address] S33.6xxA Medicine - [place] Ranjeet MYaneth,FACP Office Visit 09/09/2014 1:00p [facility] Internal Sebastián Guevara M.D. 51090 465.9 Medicine - [address] 786.2 240.9 785.0 Office Visit 07/13/2014 1:00p [facility] Internal Medicine [facility] [place], [address] V70.0 - [place] Ranjeet Rodriguez,FACP 272.0 275.01 275.42 Office Visit 04/11/2014 2:00p [facility] Internal Medicine [facility] [place], [address] 786.50 - Jess Rodriguez,FACP 426.2 Office Visit 12/31/2012 3:00p [facility] Internal Medicine VíctorMagan Cochran, [address] V70.0 - Jess Rodriguez,FACP 571.8 275.01 272.0 790.21 396.9 Office Visit 09/19/2011 1:20p [facility] Internal Medicine Víctor D. [place], [address] V70.0 - Jess Rodriguez,FACP 275.01 571.8 272.0 477.0 268.9 Office Visit 03/20/2011 3:40p DO Not Use Vacuum Drier Tender AT [facility] [place], [address] 426.3 Cecilterrence Rodriguez,FACP 275.42 275.01 Office Visit 11/27/2010 10:30a DO Not Use Vacuum Drier Tender AT [facility] [address] 692.89 [facility] 466.0 477.9 Office Visit 08/17/2010 2:00p DO Not Use Vacuum Drier Tender AT [facility] [address] V70.0 Cecilterrence Rodriguez,FACP 571.8 275.09 790.21 272.0 726.19 Office Visit 08/16/2008 2:40p DO Not Use Vacuum Drier Tender AT [facility] [address] 780.4 Cecilterrence Rodriguez,FACP 786.50 401.1 571.40 Office Visit 04/23/2007 9:30a DO Not Use Vacuum Drier Tender AT [facility] [place], [address] 562.11 Nela Rodriguez,FACP Office Visit 04/20/2007 10:30a DO Not Use Vacuum Drier Tender AT Víctor Cochran, [address] 575.0 Nela Rodriguez,FACP 535.40 Plan of Care Future Appointment(s):01/26/2018 11:15 am - Robb Pisano MD at [facility].12/19/2017 - Víctor Cochran M.D.,FACPZ00.00 Encntr for general adult medical exam w/o abnormal findingsComments:VACCINES:Flu shot every year in the fall.Shingrex is the shingles vaccine that is more effective. Itis a 2 shot series that has to be done at the drug store.You are due for your tetnus vaccine. You can get that immunization here.SCREENING:Mammogram 12/2016 - no concernsColonoscopy was 2014, due in 05/2020Pap - discuss with .Bone Mass Measurements: Per discussion with Dr. Cochran.Follow up:Print DM/HM summary for patient. Obtain Health Care Proxy from patient.E83.110 Hereditary hemochromatosisComments:Continue omeprazole per Dr. Kruse's recommendations.M18.11 Unil primary osteoarth of first carpometacarp joint, r handComments:Continue brace as recommended by orthopedics.M23.301 Oth meniscus derangements, unsp lateral meniscus, left kneeComments:Continue with left knee brace and start PT at end of the month. Follow up with orthopedics.K21.9 Gastro- esophageal reflux disease without wbequcqelboK52.0 Age-related osteoporosis w/o current pathological fractureNew Xrays:Dexa [...]
[2017-12-28 14:38] VITALS: BP 152/68
--- OUTSIDE RECORDS SUMMARY | 2017-12-28 14:38 | XMS REPORT ---
:1940 External Reference #:[id number] Author Organization [facility] Address [address] [place] [address] Phone [phone] Care Team Providers Name Role Phone Víctor Cochran MD Care Team Information Summer Babysitter Unavailable Víctor Cochran MD Primary Care Physician Unavailable Payers Type Date Identification Numbers Payment Provider Subscriber Medicare Primary Effective: Policy Number: Medicare Doris Dietz 2005 [id number] PayID: [id number] [address] [place] [address] Medigap Part B Effective: 2005 Policy Number: [facility] Joseph Dietz [id number] PayID: [id number] [address] [place] [address] Problems Date Description Provider Status Onset: 01/12/2017 Cough variant asthma Umu Quesada M.D.,FACP Onset: 04/23/2007 Diverticulitis of colon Umu Quesada M.D.FACP Onset: 08/16/2008 Benign essential hypertension Víctor Cochran Active MichaelFACP Onset: 08/17/2010 Chronic nonalcoholic liver Víctor Cochran Active disease Michael,FACP Note: needs yearly LFTs Onset: 09/19/2011 Hereditary hemochromatosis Víctor Cochran M.D.,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 Onset: 09/19/2011 Pure hypercholesterolemia Umu Quesada M.D.,FACP Onset: 09/19/2011 Allergic rhinitis due to pollen Umu Quesada M.D.,FACP Onset: 02/12/2012 Osteochondropathy Umu Quesada M.D.,FACP Onset: 12/31/2012 Impaired fasting glycaemia Umu Quesada M.D.,FACP Onset: 12/31/2012 Left bundle branch hemiblock Umu Quesada M.D.,FACP Onset: 07/13/2014 Cholelithiasis without obstruction Umu Quesada M.D.,FACP Onset: 12/18/2016 Cardiomyopathy Umu Quesada M.D.,ABISAIP Note: EF 40% Onset: 07/13/2014 Hypercalcemia Víctor Cochran M.D.,ABISAIP Inactive Inactive: 12/18/2016 Family History Date Family Member(s) Problem(s) Comments General Hypertension Father due to Parkinsons () Disease Mother Pacemaker : (age 101 Mother due to Natural Causes Years) First Son Hemochromatosis First Daughter Asthma Siblings 2 3 initially First Brother Heart [...] Active Aerosol 108(90Bas 8.5un 2 puffs by Víctor Svetlana e) its mouth every D. Sammie, mcg/Act 4 hours as ARRON Rodriguez needed Asmanex 09/11 Active Aerosol 110mcg/In 1unit 1 inhalation Vícotr Tang h s in evening Otis Cochran, Metered Doses M.DGriffin,FACP Transderm-Scop 09/11 Active Patches 1mg/3Days 8unit apply 1 Víctor (1.5 MG) 72HR s patch to Otis Cochran, skin every 3 M.DGriffin,FACP days as needed Senior Tabs 12/18 Active Tablets 1 po qd Víctor Otis Cochran M.D.,FACP Vitamin D 12/05 Active Tablets 1000Unit 30tab by mouth Víctor s everyday Otis Cochran M.D.,FACP Losartan 01/22 Active Tablets 50-12.5mg 90tab take 1 Víctor Potassium/Gowrie s tablet every Otis Cohcran, chlorothiazide morning M.D.,FACP Ursodiol 04/20 Active Capsules 300mg 60cap bid 535.40 Víctor s Otis Cochran M.D.,FACP Hydrocortisone Active Cream 0.2% topical Unknown Valerate twice daily to area as needed Colace Active Capsules 100mg 1 po bid Unknown /0000 Flaxseed Oil Active Capsules 1000mg 1 po qd Unknown / Systane Active Solution 0.4-0.3% 1 gtt ou Unknown Preservative /0000 daily prn Free for dry eyes Genteal Mild To Active Solution 0.3% 1ml 1-2 gtt in Unknown Moderate /0000 eye(s) prn Vagifem Active Tablets 10mcg 24tab pv twice a Unknown / s week (with applicator) Premarin Active Cream 0.625mg/G use1 Unknown /0000 M applicator intavaginal 2x per week Omeprazole Active Capsules DR 20mg 1 by mouth every day Otis Cochran, prn M.DGriffin,FACTania Acetaminophen Active Tablets 325mg 2 tablets by Unknown /0000 mouth every 6 hours as needed for pain/fever Metamucil Active Powder 28.3% per package Unknown Smooth Texture /0000 instructions Aspir-[address] 81mg pt takes bid Unknown /0000 three days prior to phlebotomy Fluticasone Active Suspension 50mcg/Act 2 sprays Unknown Propionate /0000 each nostril qd. Flonase Allergy 08/25 Hx Suspension 50mcg/Act 9.900 spray 1 J45.991 ml spray in Dandyikara - each nostril , M.D. 09/11 twice daily as needed Proventil HFA 01/12 Hx Aerosol 108(90Bas 6.700 inhale two e) gm puffs by Nikole - mcg/Act mouth four , M.D. 09/11 times a day as needed Nabumetone 03/08 Hx Tablets 750mg 45tab take 1 S33.6xxA s tablet by Otis Cochran, - mouth two M.D.,FAC 08/16 times daily prn Flonase Allergy 09/27 Hx Suspension 50mcg/Act 9.900 2 sprays per ml nostril Guevara, - daily M.D. 08/16 Delsym 09/27 Hx Liquid ER 30mg/5ML 89ml 1 tablespoon by mouth Guevara, - once a day M.D. 08/16 Calcium-Vitamin 07/13 Hx Tablets 600-800mg 1 tab daily Víctor -Unit Otis Cochran, - Michael,[facility] 12/05 Mytussin ac 09/18 Hx Syrup 100-10mg/ 118ml 5 ml po 477.0 5ML q4-6h Otis Cochran, - Michael,[facility] 12/31 Azithromycin 11/27 Hx Tablets 250mg 6tabs 2 tabs po qd 466.0 Víctor x1 day, 1 Otis Cochran, - tab po qd x M.D.,[facility] 09/18 4 days /2011 Flonase 11/27 Hx Suspension 50mcg/Act 3mon 2 477.9 sprays/nostr Otis Cochran, - il/day M.DGriffin,[facility] 12/31 Hydrocortisone 11/27 Hx 2.5% 50uni apply 692.89 Víctor ts sparingly to Otis Cochran, - the affected M.DGriffin,FACP 07/13 areas twice /2015 daily more Mytussin ac 11/27 Hx Syrup 100-10mg/ 118ml 5 ml po 466.0 5ML q4-6h Aliza Jimenez M.D.,[facility] 09/18 Hyzaar 06/29 Hx Tablets 50-12.5 90tab po qam Víctor s Aliza Jimenez M.D.,[facility] 01/22 Avelox 04/23 Hx Tablets 400mg 9tabs qd for 9 562.11 Víctor days Aliza Jimenez M.D.,[facility] 08/16 Avalide 04/20 Hx Tablets 150-12.5 90tab 1 PO qd Víctor s Aliza Jimenez M.D.,[facility] 06/29 Ibuprofen 04/20 Hx Tablets 600mg tid prn Víctor Aliza Jimenez M.D.,[facility] 07/13 Calcium-Vitamin 04/20 Hx Tablets 500-125 bid Víctor Sewell Aliza Jimenez M.D.,[facility] 07/13 Prilosec 04/[address] 20mg 180ca 1 po qd 535.40 Víctor ps Aliza Jimneez M.D.,[facility] 08/16 Multi Vitamin 00/00 Hx Tablets 1 po qd Unknown /0000 - 12/18 Vitamin B 00/00 Hx Capsules 1 po qd Unknown Complex /0000 - 11/27 Vitamin D-3 Hx Tablets 400Unit 2 daily Unknown /0000 - 03/08 Aspirin Low 00 Hx Tablets 81mg 1 by mouth Unknown Dose /0000 every day - 07/13 Ibuprofen Hx Capsules 200mg as needed Unknown /0000 - 12/18 [address] 20mg 1 by mouth Unknown /0000 every day - 07/13 Robitussin 00/00 Hx Syrup 15mg/5ML 1 teaspoon Unknown Maximum /0000 every 8 Strength - hours as 12/18 needed for cough Systane Hx Gel 0.4-0.3% Unknown /0000 - 08/21 Immunizations CPT Code Status Date Vaccine Reaction Lot # [id number] Given 03/13/2017 Influenza Virus Vaccine, no immediate [id number] Quadrivalent, Split, reaction, pt Preservative Free tolerated well 51522 Given 02/26/2016 Influenza Virus Vaccine, [id number] Quadrivalent, Split, Preservative Free 22168 Given 08/17/2015 Pneumococcal Conjugate [id number] Vaccine 13 Valent For Intramuscular Use 80807 Given 04/20/2015 Influenza Virus Vaccine, [id number] Quadrivalent, Split, Preservative Free 92620 Given 04/01/2014 Flu Vaccine Split Virus [id number] Preservative Free For Indiv 3Yr Older 63919 Given 03/26/2013 Flu Vaccine Split Virus [id number] Preservative Free For Indiv 3Yr Older Q2038 Given 03/04/2012 Fluzone Vaccine [id number] Q2038 Given 03/18/2011 Fluzone Vaccine [id number] 37538 Given 03/30/2010 Influenza Virus 3Yrs & [id number] Over 98622 Given 06/27/2009 Influenza Virus Vaccine, [id number] Pandemic Formulation 63287 Given 03/23/2009 Influenza Virus 3Yrs & [id number] Over 36928 Given 03/23/2009 Influenza Virus 3Yrs & Over 57958 Given 06/27/2008 Zoster (Zostavax) 98236 Given 06/27/2008 Zoster (Zostavax) 14334 Given 06/27/2008 Zoster (Zostavax) [id number] 04121 Given 03/21/2008 Influenza Virus 3Yrs & [id number] Over 29658 Given 04/09/2007 Influenza Virus 3Yrs & Over 17540 Given 04/09/2007 Influenza Virus 3Yrs & [id number] Over 20330 Given 10/06/2006 Tdap - Tetanus/Diptheria/Acellula r Pertussis 59851 Given 12/24/2005 Pneumonia Vaccine Vital Signs Date Vital Result Comment 12/12/2017 Height 62 inches 5'2" Weight 157.00 [...] Test Date Test Result H/L Range Note Iron & Iron Binding Capacity 05/19/2017 Iron 108 g/dL 50-212 Unsaturated Iron Binding 267 g/dL Total Iron Binding Capacity 375 g/dL 250-450 % Iron Saturation 29 % 15-55 CBC Auto Diff 12/12/2016 White Blood Count 5.4 10^3/uL 3.5-10.8 1 Red Blood Count 4.39 10^6/uL 4.0-5.4 1 Hemoglobin 11.8 g/dL Low 12.0-16.0 1 Hematocrit 37 % 35-47 1 Mean Corpuscular Volume 84 fL 80-97 1 Mean Corpuscular Hemoglobin 27 pg 27-31 1 Mean Corpuscular HGB Conc 32 g/dL 31-36 1 Red Cell Distribution Width 16 % High 10.5-15 1 Platelet Count 234 10^3/uL 150-450 1 Mean Platelet Volume 8 um3 7.4-10.4 1 Abs Neutrophils 3.1 10^3/uL 1.5-7.7 1 Abs Lymphocytes 1.6 10^3/uL 1.0-4.8 1 Abs Monocytes 0.5 10^3/uL 0-0.8 1 Abs Eosinophils 0.1 10^3/uL 0-0.6 1 Abs Basophils 0 10^3/uL 0-0.2 1 Abs Nucleated RBC 0.01 10^3/uL 1 Granulocyte % 57.3 % 38-83 1 Lymphocyte % 30.2 % 25-47 1 Monocyte % 9.7 % High 1-9 1 Eosinophil % 2.4 % 0-6 1 Basophil % 0.4 % 0-2 1 Nucleated Red Blood Cells % 0.1 1 Comp Metabolic Panel 12/12/2016 Sodium 132 mmol/L Low 133-145 1 Potassium 3.6 mmol/L 3.5-5.0 1 Chloride 100 mmol/L Low 101-111 1 Co2 Carbon Dioxide 25 mmol/L 22-32 1 Anion Gap 7 mmol/L 2-11 1 Glucose 106 mg/dL High 70-100 1 Blood Urea Nitrogen 12 mg/dL 6-24 1 Creatinine 0.56 mg/dL 0.51-0.95 1 BUN/Creatinine Ratio 21.4 High 8-20 1 Calcium 10.1 mg/dL 8.6-10.3 1 Total Protein 7.8 g/dL 6.4-8.9 1 Albumin 4.2 g/dL 3.2-5.2 1 Globulin 3.6 g/dL 2-4 1 Albumin/Globulin Ratio 1.2 1-3 1 Total Bilirubin 0.50 mg/dL 0.2-1.0 1 Alkaline Phosphatase 88 U/L 34-104 1 Alt 58 U/L High 7-52 1 Ast 91 U/L High 13-39 1 Egfr Non- 105.5 >60 1 Egfr 135.7 >60 1, 2 Lipid Profile (Trig/Chol/HDL) 12/12/2016 Triglycerides 95 mg/dL 1, 3 Cholesterol 189 mg/dL 1, 4 HDL Cholesterol 65.1 mg/dL 1, 5 LDL Cholesterol 105 mg/dL 1, 6 Liver Function Panel 12/12/2016 Direct Bilirubin 0.10 mg/dL 0.03-0.18 1 Indirect Bilirubin 0.4 mg/dL 0.3-1.0 1 Iron & Iron Binding Capacity 12/12/2016 Iron 65 g/dL 50-212 1 Unsaturated Iron Binding 348 g/dL 1 Total Iron Binding Capacity 413 g/dL 250-450 1 % Iron Saturation 16 % 15-55 1 Laboratory test finding 12/12/2016 Ferritin 25.9 ng/mL 11-307 1 Laboratory test finding 04/23/2016 Therapeutic Phlebotomy (SEE NOTE) 7 , 8 Iron & Iron Binding 11/03/2015 Iron 139 g/dL 50-212 Capacity Unsaturated Iron Binding 162 g/dL Total Iron Binding Capacity 301 g/dL 250-450 % Iron Saturation 46 % 15-55 Basic Metabolic Panel 11/03/2015 Sodium 139 mmol/L 133-145 Potassium 4.0 mmol/L 3.5-5.0 Chloride 103 mmol/L 101-111 Co2 Carbon Dioxide 28 mmol/L 22-32 Anion Gap 8 mmol/L 2-11 Glucose 99 mg/dL 70-100 Blood Urea Nitrogen 12 mg/dL 6-24 Creatinine 0.60 mg/dL 0.51-0.95 BUN/Creatinine Ratio 20.0 8-20 Calcium 9.9 mg/dL 8.6-10.3 Egfr Non- 97.7 >60 Egfr 125.7 >60 9 CBC Auto Diff 11/03/2015 White Blood Count [...] finding 11/03/2015 Ferritin 617.0 ng/mL High 11-307 10 Lipid Profile (Trig/Chol/HDL) 08/03/2015 Triglycerides 86 mg/dL 11 Cholesterol 207 mg/dL 12 HDL Cholesterol 64.0 mg/dL 13 LDL Cholesterol 126 mg/dL 14 Laboratory test finding 05/16/2015 Surgical Pathology SEE RESULT BELOW 15 Comp Metabolic Panel 04/19/2015 Sodium 136 mmol/L [...] Egfr Non- 101.6 >60 Egfr 130.7 >60 16 Inr/Protime 04/19/2015 Inr 0.99 0.89-1.11 17 CBC Auto Diff 04/19/2015 White Blood Count [...] Egfr Non- 113.1 >60 Egfr 145.4 >60 18 CBC Auto Diff 09/20/2014 White Blood Count [...] TSH (Thyroid Stimulating 2.71 IU/mL 0.34-5.60 Horm) Vitamin D, 25 Hydroxy 08/09/2014 25-Hydroxy Vitamin D2 <4.0 ng/mL 25-Hydroxy Vitamin D3 52 ng/mL 25-Hydroxy Vitamin D Total 52 ng/mL 19 Vitamin D 1,25 And 08/09/2014 Vitamin D 1,25-Dihydroxy 70 pg/mL 18-78 20 Vitamin D,2 Pthi 08/09/2014 PTH Intact 3.8 pmol/L 1.3-9.3 Calcium (PTH Intact) 10.5 mg/dL High 8.6-10.3 Laboratory test finding 08/09/2014 Ferritin 364.5 ng/mL High 11-307 Calcium Ionized 4.97 mg/dL 4.65-5.28 Iron & Iron Binding Capacity 08/09/2014 Iron 71 g/dL 50-212 Unsaturated Iron Binding 223 g/dL Total Iron Binding Capacity 294 g/dL 250-450 % Iron Saturation 24 % 15-55 Liver Function Panel 08/09/2014 Total Protein 7.1 g/dL 6.4-8.9 Albumin 4.3 g/dL 3.2-5.2 Globulin 2.8 g/dL 2-4 Albumin/Globulin Ratio 1.5 1-3 Total Bilirubin 0.50 mg/dL 0.2-1.0 Direct Bilirubin 0.10 mg/dL 0.03-0.18 Indirect Bilirubin 0.4 mg/dL 0.3-1.0 Alkaline Phosphatase 87 U/L 34-104 Alt 90 U/L High 7-52 Ast 66 U/L High 13-39 Lipid Profile (Trig/Chol/HDL) 07/06/2014 Triglycerides 68 mg/dL 21, 22 Cholesterol 201 mg/dL 21, 23 HDL Cholesterol 78.2 mg/dL 21, 24 LDL Cholesterol 109 mg/dL 21, 25 Basic Metabolic Panel 07/06/2014 Sodium 138 mmol/L 133-145 21 Potassium 4.0 mmol/L 3.5-5.0 21 Chloride 103 mmol/L 101-111 21 Co2 Carbon Dioxide 28 mmol/L 22-32 21 Anion Gap 7 mmol/L 2-11 21 Glucose 90 mg/dL 70-100 21 Blood Urea Nitrogen 16 mg/dL 6-24 21 Creatinine 0.62 mg/dL 0.51-0.95 21 BUN/Creatinine Ratio 25.8 High 8-20 21 Calcium 10.4 mg/dL High 8.6-10.3 21 Egfr Non- 94.4 >60 21 Egfr 121.3 >60 21, 26 Clotest 07/16/2013 Clotest (SEE NOTE) 27 Surgical Pathology 07/16/2013 S RUN DATE: 07/20/ <SEE 28 NOTE> Laboratory test finding 04/30/2013 Afp Tumor Marker 4.7 ng/mL 29 CA 19-9 7 U/mL <55 30 Comp Metabolic Panel 04/30/2013 Sodium 138 mmol/L [...] Egfr Non- 121.3 >60 Egfr 156.0 >60 31 CBC Auto Diff 04/30/2013 White Blood Count [...] High 14-54 Ast 54 U/L High 12-42 CBC Auto Diff 01/18/2013 White Blood Count [...] 0-2 Nucleated Red Blood Cells % 0 Lipid Profile (Trig/Chol/HDL) 12/28/2012 Triglycerides 58 mg/dL 40-200 Cholesterol 215 mg/dL High Less than 200 HDL Cholesterol 77 mg/dL High 40-60 32 Cholesterol/HDL Ratio 2.8 Average 1-4.44 LDL Cholesterol 126.4 High Less Than 100 33 Comp Metabolic Panel 12/28/2012 Sodium 139 mmol/L [...] Egfr Non- 98.3 >60 Egfr 126.4 >60 34 Iron & Iron Binding Capacity 12/28/2012 Iron 83 g/dL 28-170 Unsaturated Iron Binding 257 g/dL Total Iron Binding Capacity 340 g/dL 250-450 % Iron Saturation 24 % 15-55 Laboratory test finding 12/28/2012 Ferritin 350 ng/mL High 11-307 35 Vitamin D, 25 Hydroxy 11/20/2011 25-Hydroxy Vitamin D2 <4.0 ng/mL () 25-Hydroxy Vitamin D3 39 ng/mL () 25-Hydroxy Vitamin D Total 39 ng/mL () 36 Iron & Iron Binding Capacity 11/20/2011 Iron Total 84 g/dL 28-170 Unsaturated Iron Binding 248 g/dL Total Iron Binding Capacity 332 g/dL 250-450 % Iron Saturation 25 % 15-55 Liver Function Panel 11/20/2011 Total Protein 6.8 GM/DL 6.2-8.1 Albumin 4.1 GM/DL 3.2-5.2 Globulin 2.7 GM/DL 2-4 Albumin/Globulin Ratio 1.5 1-3 Bilirubin Total 0.7 mg/dL 0.4-1.5 37 Bilirubin Direct 0.1 mg/dL 0.1-0.5 Indirect Bilirubin 0.6 mg/dL 0.3-1.0 38 Alkaline Phosphatase 75 U/L 30-110 Alt (SGPT) [...] Metabolic Panel 09/10/2011 Sodium 137 mmol/L 135-145 21 Potassium 4.3 mmol/L 3.5-5.0 21 Chloride 102 mmol/L 101-111 21 Co2 (Carbon Dioxide) 28.0 mmol/L 22-32 21 Anion Gap 7.0 mmol/L 2-11 21, 39 Glucose 97 mg/dL 70-100 21 BUN 14 mg/dL 6-24 21 Creatinine 0.6 mg/dL 0.50-1.40 21 One Over Creatinine 1.66 21 BUN/Creatinine Ratio 23.3 High 8-20 21 Calcium 10.0 mg/dL High 8.1-9.9 21 eGFR Non- 98.8 > 60 21 eGFR 127.1 > 60 21, 40 Lipid Profile (Trig/Chol/HDL) 09/10/2011 Triglyceride 67 mg/dL 40-200 21 Cholesterol 208 mg/dL High Less Than 200 21, 41 High Density Lipoprotein 74 mg/dL High 40-60 21, 42 Cholesterol/HDL Ratio 2.81 AVERAGE 1-4.44 21 Low Density Lipoprotein 121 mg/dL High Less Than 100 21, 43 Liver Function Panel 09/10/2011 Total Protein 7.3 GM/DL 6.2-8.1 21 Albumin 4.3 GM/DL 3.2-5.2 21 Globulin 3.0 GM/DL 2-4 21 Albumin/Globulin Ratio 1.4 1-3 21 Bilirubin Total 0.6 mg/dL 0.4-1.5 21, 44 Bilirubin Direct 0.1 mg/dL 0.1-0.5 21 Indirect Bilirubin 0.5 mg/dL 0.3-1.0 21, 45 Alkaline Phosphatase 67 U/L 30-110 21 Alt (SGPT) 33 U/L 14-54 21 Ast (Sgot) 29 U/L 12-42 21 Basic Metabolic Panel 03/20/2011 Sodium 140 mmol/L 135-145 Potassium 4.1 mmol/L 3.5-5.0 Chloride 105 mmol/L 101-111 Co2 (Carbon Dioxide) 28.0 mmol/L 22-32 Anion Gap 7.0 mmol/L 2-11 46 Glucose 93 mg/dL 70-100 BUN 14 mg/dL 6-24 Creatinine 0.6 mg/dL 0.50-1.40 One Over Creatinine 1.66 BUN/Creatinine Ratio 23.3 High 8-20 Calcium 10.2 mg/dL High 8.1-9.9 eGFR Non- 98.8 > 60 eGFR 127.1 > 60 47 Vitamin D, 25 Hydroxy 03/20/2011 25-Hydroxy Vitamin D2 <4.0 ng/mL () 25-Hydroxy Vitamin D3 31 ng/mL () 25-Hydroxy Vitamin D Total 31 ng/mL () 48 Liver Function Panel 03/20/2011 Total Protein 6.6 GM/DL 6.2-8.1 Albumin 4.0 GM/DL 3.2-5.2 Globulin 2.6 GM/DL 2-4 Albumin/Globulin Ratio 1.5 1-3 Bilirubin Total 0.7 mg/dL 0.4-1.5 49 Bilirubin Direct 0.2 mg/dL 0.1-0.5 Indirect Bilirubin 0.5 mg/dL 0.3-1.0 50 Alkaline Phosphatase 67 U/L 30-110 Alt (SGPT) [...] test finding 10/16/2010 Therapeutic Phlebotomy (SEE NOTE) 51 Liver Function Panel 10/16/2010 Total Protein 6.8 GM/DL 6.2-8.1 Albumin 4.1 GM/DL 3.2-5.2 Globulin 2.7 GM/DL 2-4 Albumin/Globulin Ratio 1.5 1-3 Bilirubin Total 0.6 mg/dL 0.4-1.5 52 Bilirubin Direct 0.0 mg/dL Low 0.1-0.5 Indirect Bilirubin (SEE NOTE) mg/dL 0.3-1.0 53 Alkaline Phosphatase 66 U/L 30-110 Alt (SGPT) 27 U/L 14-54 Ast (Sgot) 30 U/L 12-42 Laboratory test finding 10/16/2010 Iron Total 84 g/dL 28-170 Ferritin 84 NG/ML 11.0-307 Lipid Panel - [facility] 08/08/2010 CPK (Creatine Kinase) 63 U/L 0-170 Comp Metabolic Panel 08/08/2010 Sodium 140 mmol/L 135-145 Potassium 4.5 mmol/L 3.5-5.0 Chloride 103 mmol/L 101-111 Co2 (Carbon Dioxide) 29.0 mmol/L 22-32 Anion Gap 8.0 mmol/L 2-11 54 Glucose 103 mg/dL High 70-100 BUN 14 mg/dL 6-24 Creatinine 0.60 mg/dL 0.50-1.40 One Over Creatinine 1.60 BUN/Creatinine Ratio 23.3 High 8-20 Calcium 10.1 mg/dL High 8.1-9.9 Total Protein 6.9 GM/DL 6.2-8.1 Albumin 4.3 GM/DL 3.2-5.2 Globulin 2.6 GM/DL 2-4 Albumin/Globulin Ratio 1.7 1-3 Bilirubin Total 0.7 mg/dL 0.4-1.5 55 Alkaline Phosphatase 68 U/L 30-110 Alt (SGPT) 28 U/L 14-54 Ast (Sgot) 32 U/L 12-42 eGFR Non- 99.1 > 60 eGFR 127.5 > 60 56 Lipid Profile (Trig/Chol/HDL) 08/08/2010 Triglyceride 72 mg/dL 40-200 Cholesterol 246 mg/dL High Less Than 200 57 High Density Lipoprotein 86 mg/dL High 40-60 58 Cholesterol/HDL Ratio 2.86 AVERAGE 1-4.44 Low Density Lipoprotein 146 mg/dL High Less Than 100 59 Laboratory test finding 08/08/2010 Iron Total 102 [...] 06/14/2009 Mitochondrial AB, AMA-M2 <0.1 U <0.1 60 Igg Rafia 06/14/2009 Antinuclear AB NEGATIVE Negative Reviewed By (SEE NOTE) 61 Laboratory test finding 06/14/2009 Ferritin 61 NG/ML [...] 1.4 1-3 Bilirubin Total 0.5 mg/dL 0.4-1.5 62 Bilirubin Direct 0.1 mg/dL 0.1-0.5 Indirect Bilirubin [...] test finding 08/11/2008 Therapeutic Phlebotomy (SEE NOTE) 63 Hemoglobin/Hematacrit 08/11/2008 Hemoglobin 13.9 g/dL 12.0-16.0 64 Hematocrit 41 % 35-47 64 Basic Metabolic Panel 08/11/2008 Sodium 135 mmol/L 135-145 64 Potassium 3.9 mmol/L 3.5-5.0 64 Chloride 103 mmol/L 101-111 64 Co2 (Carbon Dioxide) 26.0 mmol/L 22-32 64 Anion Gap 6.0 mmol/L 2-11 64, 65 Glucose 96 mg/dL 70-100 64, 66 BUN 11 mg/dL 6-24 64 Creatinine 0.60 mg/dL 0.50-1.40 64 One Over Creatinine 1.60 64 BUN/Creatinine Ratio 18.3 8-20 64 Calcium 9.7 mg/dL 8.1-9.9 64, 67 Lipid Profile (Trig/Chol/HDL) 08/11/2008 Triglyceride 92 mg/dL 40-200 64 Cholesterol 192 mg/dL Less Than 200 64, 68 High Density Lipoprotein 64 mg/dL High 40-60 64, 69 Cholesterol/HDL Ratio 3.00 AVERAGE 1-4.44 64 Low Density Lipoprotein 110 mg/dL High Less Than 100 64, 70 Liver Function Panel 08/11/2008 Total Protein 6.9 GM/DL 6.2-8.1 64 Albumin 3.8 GM/DL 3.2-5.2 64 Globulin 3.1 GM/DL 2-4 64 Albumin/Globulin Ratio 1.2 1-3 64 Bilirubin Total 0.6 mg/dL 0.4-1.5 64 Bilirubin Direct 0.1 mg/dL 0.1-0.5 64 Indirect Bilirubin 0.5 mg/dL 0.1-0.75 64 Alkaline Phosphatase 83 U/L 30-110 64 Alt (SGPT) 58 U/L High 14-54 64 Ast (Sgot) 55 U/L High 12-42 64 Laboratory test finding 08/11/2008 CPK (Creatine Kinase) 75 U/L 0-170 64 Iron & Iron Binding Capacity 08/11/2008 Iron Total 67 g/dL 28-170 64 Unsaturated Iron Binding 320 g/dL 64 Total Iron Binding Capacity 387 g/dL 250-450 64 % Iron Saturation 17 % 15-55 64 Laboratory test finding 08/11/2008 Ferritin 17 NG/ML 11.0-307 64 Laboratory test finding 03/17/2008 Therapeutic Phlebotomy (SEE NOTE) 71 Hemoglobin/Hematacrit 03/17/2008 Hemoglobin 13.9 g/dL 12.0-16.0 Hematocrit [...] test 05/01/2007 Alphafetoprotein Tumor 3.9 NG/ML <6.0 72 finding Marker Ova Parasite Concen 04/28/2007 Ova Parasite Concen - NO OVA PARASIT 73, 74 - Full Full <SEE NOTE> Laboratory test 04/28/2007 O P: Giardia/Crypto Giardia and cryp 73, 75 finding Screen <SEE NOTE> Urinalysis 04/22/2007 Ua Color YELLOW Ictotest-Urine POSITIVE (NEG) Appearance-Urine CLEAR Bilirubin-Ur POSITIVE Negative Blood-Urine TRACE Negative Esterase-Urine 2+ Negative Glucose-Urine NEGATIVE Negative Ketones-Urine NEGATIVE Negative Nitrite NEGATIVE Negative PH-Urine 6.0 5-9 Protein-Urine 1+ Negative Lcadzvdshivb-[id number] NEGATIVE Negative Specific [place]-Ur 1.012 1.010-1.030 Urinalysis W/Microscopic 04/22/2007 Ua Color YELLOW Ictotest-Urine POSITIVE (NEG) Appearance-Urine CLEAR Bacteria-Urine TRACE Bilirubin-Ur POSITIVE Negative Blood-Urine TRACE Negative Epith Cells-Ur MODERATE Esterase-Urine 2+ Negative Glucose-Urine NEGATIVE Negative Ketones-Urine NEGATIVE Negative Nitrite NEGATIVE Negative PH-Urine 6.0 5-9 Protein-Urine 1+ Negative RBC-Urine RARE 0-2 Rsyhkiocflyu-Jt-WHE NEGATIVE Negative Specific [place]-Ur 1.012 1.010-1.030 WBC-Urine 2-5 0-5 Laboratory test 04/22/2007 Urine Culture SPECIMEN CONTAIN 76 finding Sensitivi <SEE NOTE> Laboratory test 04/20/2007 C Reactive Protein 6.1 mg/dL High Less Than finding 0.5 CBC With Manual 04/20/2007 White Blood Count 10.8 CUMM 4.8-10.8 Diff Absolute Neutrophil Count 9.8 Atypical Lymph 1 [...] mg/dL 0.4-1.5 Total Protein 7.2 GM/DL 6.2-8.1 Basic Metabolic Panel Stat 04/20/2007 One Over Creatinine 1.25 Anion Gap 8.0 mmol/L 2-11 77 BUN 18 mg/dL 6-24 Calcium 9.6 mg/dL 8.7-10.2 Chloride 102 mmol/L 101-111 Co2 (Carbon Dioxide) 27.0 mmol/L 22-32 Glucose 121 mg/dL High 70-105 Potassium 3.4 mmol/L Low 3.5-5.0 Sodium 137 mmol/L 135-145 BUN/Creatinine Ratio 22.5 High 8-20 Creatinine 0.8 mg/dL 0.5-1.4 1 THERAPEUTIC IF HGB IS GREATER THAN OR EQUAL TO 12.0 2 Because ethnic data is not always readily [...] 15-29 5 Kidney failure <15 (or dialysis) 3 Desirable <150 Borderline high 150-199 High 200-499 Very High >500 4 Desirable <200 Borderline high 200-239 High >239 5 Low <40 Desirable: 40-60 High: >60 6 Desirable: <100 mg/dL Near Optimal: 100-129 mg/dL Borderline High: 130-159 mg/dL High: 160-189 mg/dL Very High: >189 mg/dL 7 HEREDITARY HEMOCHROMATOSIS 8 Approximately 450 ml of blood removed. 9 Because ethnic data is not always readily [...] 15-29 5 Kidney failure <15 (or dialysis) 10 FASTING 10 HOUR Copy Result to: HAYLEY KRUSE ([id number]) 11 Desirable <150 Borderline high 150-199 High 200-499 Very High >500 12 Desirable <200 Borderline high 200-239 High >239 13 Low <40 Desirable: 40-60 High: >60 14 Desirable: <100 mg/dL Near Optimal: 100-129 mg/dL Borderline High: 130-159 mg/dL High: 160-189 mg/dL Very High: >189 mg/dL 15 SEE RESULT BELOW Name: DORIS DIETZ : [address]: Hayley Kruse MD Acct: [id number] Unit: [id number] AGE: 74 Location: ENDO Re05/16/15 SEX: F Status: REG REF SPEC: [id number] BEBE: 05/16/15-12[address] [facility] [address]: Hyaley Kruse MD REQ: [id number] RECD: 05/17/153 STATUS: YESICA CHAND DR: Víctor Cochran MD [...] performed at Main Lab DEPARTMENT OF PATHOLOGY, [address] [place] [address] Brice Dillon M.D. Director [facility] # [id number] RUN DATE: 05/18/15 [facility] LAB LIVE PAGE 2 Patient: DORIS DIETZ Agustina [id number] (Continued) GROSS DESCRIPTION (Continued) GROSS DESCRIPTION (Continued) [...] performed at Main Lab DEPARTMENT OF PATHOLOGY, [address] [place] [address] Brice Dillon M.D. Director [facility] # [id number] 16 Because ethnic data is not always readily [...] 15-29 5 Kidney failure <15 (or dialysis) 17 Effective immediately, due to a laboratory mean normal Protime change, the reference range for the INR has changed. 18 Because ethnic data is not always readily [...] 15-29 5 Kidney failure <15 (or dialysis) 19 Interpretation: 51-80 ng/mL (increased risk of hypercalciuria) REFERENCE VALUE 25-HYDROXY D TOTAL (D2+D3) Optimum levels in the healthy population are 20-50, patients with bone disease may benefit from higher levels within this range. Test Performed by: [place] [address] Wastewater Treatment Engineer: Domingo Owusu II, M.D., Ph.D. 20 Test Performed by: [place] [address] Wastewater Treatment Engineer: Domingo Owusu II, M.D., Ph.D. 21 FASTING 22 Desirable <150 Borderline high 150-199 High 200-499 Very High >500 23 Desirable <200 Borderline high 200-239 High >239 24 Low <40 Desirable: 40-60 High: >60 25 Desirable <100 Near Optimal 100-129 Borderline high 130-159 High 160-189 Very High >189 26 Because ethnic data is not always readily [...] 15-29 5 Kidney failure <15 (or dialysis) 27 RUN DATE: 07/17/13 [facility] LAB LIVE PAGE 1 RUN TIME: [address] [place] [address] Specimen Inquiry Name: LOUISEMEKHIDORIS : [address]: Hayley Kruse MD Acct: [id number] Unit: [id number] AGE: 72 Location: ENDO Re07/16/13 SEX: F Status: REG REF SPEC: [id number] BEBE: 07/16/13- SUBM DR: Hayley Kruse MD REQ: [id number] RECD: 07/16/137 STATUS: COMP [facility] DR: Víctor Cochran MD _ SOURCE: [facility]: ORDERED: Clotest Procedure Result Verified Site Clotest Final 07/17/13- 48 ML Clotest Negative END OF REPORT * ML=Testing performed at Main Lab DEPARTMENT OF PATHOLOGY, [facility] [address] [place], [place] [address] Brice Dillon M.D. Director [facility] Permit #[id number] 28 RUN DATE: 07/20/13 [facility] LAB LIVE PAGE 1 RUN TIME: 1700 [facility] [place], [place] [address] Specimen Inquiry Name: DORIS DIETZ : [address]: Hayley Kruse MD Acct: [id number] Unit: [id number] AGE: 72 Location: ENDO Re07/16/13 SEX: F Status: REG REF SPEC: [id number] EBBE: 07/16/13- [facility] DR: Hayley Kruse MD REQ: [id number] RECD: 07/16/13 STATUS: YESICA CHAND DR: Víctor Cochran MD _ ORDERED: LEVEL IV FINAL DIAGNOSIS Stomach, body, biopsy: Fundic gland polyp. CLINICAL HISTORY Reflux disease/fatty liver for EGD. Dyspepsia, abdomen negative. Non- alcoholic fatty liver diseae. POST-OPERATIVE DIAGNOSIS EGD - larynx normal, Esophagus - normal. EG at 34 1/2, no varices. Stomach - small to moderate [...] performed at Main Lab DEPARTMENT OF PATHOLOGY, [address] [place] [address] Brice Dillon M.D. Director [facility] Permit #[id number] 29 -- REFERENCE VALUE -- <6.0 Reference values are for non- subjects only; production of AFP elevates values in women. The testing method is an immunoenzymatic assay manufactured by [employer] and performed on the [employer] DxI 800. Values obtained with different assay methods or kits may be different and cannot be used interchangeably. Test results cannot be interpreted as absolute evidence for the presence or absence of malignant disease. Alpha-Fetoprotein values are not interpretable in females for the investigation of malignant disease. Test Performed by: [place] [address] Wastewater Treatment Engineer: Jamel Rouse III, M.D. 30 The testing method is an immunoenzymatic assay manufactured by [employer] and performed on the [employer] DxI 800. Values obtained with different assay methods or kits may be different and cannot be used interchangeably. Test results cannot be interpreted as absolute evidence for the presence or absence of malignant disease. Test Performed by: [place] [address] Wastewater Treatment Engineer: Jamel Rouse III, M.D. 31 Because ethnic data is not always readily [...] 15-29 5 Kidney failure <15 (or dialysis) 32 HDL Interpretation: Undesirable: High Risk: Less than 40 mg/dL Desirable: Low Risk: Greater than 60 mg/dL 33 LDL Interpretation: Low Risk Optimal Level: LDL Less than 100 mg/dL Near or Above Optimal: LDL 100-129 mg/dL Borderline High Risk: LDL 130-159 mg/dL High Risk: LDL 160-189 mg/dL Very High Risk: LDL Greater than 189 mg/dL 34 Because ethnic data is not always readily [...] 15-29 5 Kidney failure <15 (or dialysis) 35 FASTING 36 -- REFERENCE VALUE -- 25-HYDROXY D TOTAL (D2+D3) Optimum levels in the normal population are 25-80 Test Performed by: [facility] [address] [address] Wastewater Treatment Engineer: Jamel Rouse III, M.D. 37 A metabolite of Naproxen, O-desmethylnaproxen, has been shown to interfere with the Jendrassik-Sofie method for measuring total bilirubin. Samples from patients who have taken Naproxen have shown spurious elevation in total bilirubin levels. 38 Please note updated reference range, effective 12/28/09 39 Anion gap measurement may be of limited value in the presence of any alkalosis, especially in a combined acid base disorder. . 40 Because ethnic data is not always [...] 5 Kidney failure <15 (or dialysis) 41 CHOLESTEROL INTERPRETATION: Desirable: Less than 200 MG/DL Borderline-High Risk: 200-239 MG/DL High-Risk: 240 MG/DL and over 42 HDL INTERPRETATION: Undesirable: High Risk: Less than 40 MG/DL Desirable: Low Risk: Greater than 60 MG/DL 43 LDL INTERPRETATION: Low Risk Optimal Level: LDL Less than 100 MG/DL Near or Above Optimal: LDL 100-129 MG/DL Borderline High Risk: LDL 130-159 MG/DL High Risk: LDL 160-189 MG/DL Very High Risk: LDL Greater than 189 MG/DL 44 A metabolite of Naproxen, O-desmethylnaproxen, has been shown to interfere with the Jendrassik-Sofie method for measuring total bilirubin. Samples from patients who have taken Naproxen have shown spurious elevation in total bilirubin levels. 45 Please note updated reference range, effective 12/28/09 46 Anion gap measurement may be of limited value in the presence of any alkalosis, especially in a combined acid base disorder. . 47 Because ethnic data is not always readily [...] 15-29 5 Kidney failure <15 (or dialysis) 48 -- REFERENCE VALUE -- 25-HYDROXY D TOTAL (D2+D3) Optimum levels in the normal population are 25-80 Test Performed by: [facility] Dpt of Lab Med and Pathology [address] [place] [address] Wastewater Treatment Engineer: Jamel Rouse III, M.D. 49 A metabolite of Naproxen, O-desmethylnaproxen, has been shown to interfere with the Jendrassik-Sofie method for measuring total bilirubin. Samples from patients who have taken Naproxen have shown spurious elevation in total bilirubin levels. 50 Please note updated reference range, effective 12/28/09 51 APPROXIMATELY 450 ML OF BLOOD REMOVED. 52 A metabolite of Naproxen, O-desmethylnaproxen, has been shown to interfere with the Jendrassik-Sofie method for measuring total bilirubin. Samples from patients who have taken Naproxen have shown spurious elevation in total bilirubin levels. 53 UNABLE TO CALCULATE IND.BILI D.BILI IS <0.1 Please note updated reference range, effective 12/28/09 54 Anion gap measurement may be of limited value in the presence of any alkalosis, especially in a combined acid base disorder. . 55 A metabolite of Naproxen, O-desmethylnaproxen, has been shown to interfere with the Jendrassik-Macclenny method for measuring total bilirubin. Samples from patients who have taken Naproxen have shown spurious elevation in total bilirubin levels. 56 Because ethnic data is not always readily [...] 15-29 5 Kidney failure <15 (or dialysis) 57 CHOLESTEROL INTERPRETATION: Desirable: Less than 200 MG/DL Borderline-High Risk: 200-239 MG/DL High-Risk: 240 MG/DL and over 58 HDL INTERPRETATION: Undesirable: High Risk: Less than 40 MG/DL Desirable: Low Risk: Greater than 60 MG/DL 59 LDL INTERPRETATION: Low Risk Optimal Level: LDL Less than 100 MG/DL Near or Above Optimal: LDL 100-129 MG/DL Borderline High Risk: LDL 130-159 MG/DL High Risk: LDL 160-189 MG/DL Very High Risk: LDL Greater than 189 MG/DL 60 Interpretation: Negative (<0.1) Test Performed by: [facility] Dpt of Lab Med and Pathology [address] [place] [address] Wastewater Treatment Engineer: Jamel Rouse III, M.D. 61 REVIEWED BY NORMA MUÑIZ MD 62 A metabolite of Naproxen, O-desmethylnaproxen, has been shown to interfere with the Jendrassik-Sofie method for measuring total bilirubin. Samples from patients who have taken Naproxen have shown spurious elevation in total bilirubin levels. 63 APPROXIMATELY 450 ML OF BLOOD REMOVED. VMATSON/RPRESTON ON 64 DO NOT PHLEBOTOMIZE IF HH IS LES THAN 11.0 AND 33.0 65 Anion gap measurement may be of limited value in the presence of any alkalosis, especially in a combined acid base disorder. . 66 Note change in reference range as of 01/28/08. The change was based on recommendations from the [employer]. 67 Please note change in reference range effective 07 . 68 CHOLESTEROL INTERPRETATION: Desirable: Less than 200 MG/DL Borderline-High Risk: 200-239 MG/DL High-Risk: 240 MG/DL and over 69 HDL INTERPRETATION: Undesirable: High Risk: Less than 40 MG/DL Desirable: Low Risk: Greater than 60 MG/DL 70 LDL INTERPRETATION: Low Risk Optimal Level: LDL Less than 100 MG/DL Near or Above Optimal: LDL 100-129 MG/DL Borderline High Risk: LDL 130-159 MG/DL High Risk: LDL 160-189 MG/DL Very High Risk: LDL Greater than 189 MG/DL 71 APPROXIMATELY 450 ML OF BLOOD REMOVED. 72 PLEASE NOTE NEW REFERENCE RANGE EFFECTIVE 07 ASSAY BY IMMUNOCHEMILUMINOMETRIC ASSAY ON THE [employer] DXI-800. VALUES OBTAINED WITH DIFFERENT METHODS OR KITS CANNOT BE USED INTERCHANGEABLY FOR PATIENT MONITORING. RESULTS CANNOT BE INTERPRETED ABSOLUTE EVIDENCE OF THE PRESENCE OR ABSENCE OF MALIGNANCY. THE TEST IS NOT INTERPRETABLE IN . TEST PERFORMED BY: [employer], [employer]. [id number] [place] [phone] 73 LOOK FOR POSSIBLE CHLONORCHIS OR E. HISTOLYTICA [...] LOOK FOR POSSIBLE CHLONORCHIS OR E. HISTOL 74 NO OVA PARASITES OBSERVED BY EDWIN ACETATE CONCENTRATION. NO CYSTS /OR TROPHOZOITES OBSERVED BY TRICHROME STAIN. CRYPTOSPORIDIUM NOT ROUTINELY PERFORMED WITH OVA AND PARASITE TESTING. 75 Giardia and cryptosporidium antigen testing performed by immunoassay. If patient is immunocompromised or has traveled to or is from a developing country, a full ova and parasite exam with microscopic (OPMIC) is recommended. All samples will be held one month in case full ova and parasite testing is requested. Contact the Microbiology Department at [phone]. N^NEGATIVE BY IMMUNOASSAY^CRY N^NEGATIVE BY IMMUNOASSAY^JUAN JOSÉ 76 SPECIMEN CONTAINS NORMAL URETHRAL OR PERINEAL GERA AND DOES NOT SUGGEST URINARY TRACT INFECTION 50^25-50,000 ORGANISMS/ML (MODERATE)^CCU 77 Anion gap measurement may be of limited value in the presence of any alkalosis, especially in a combined acid base disorder. . Procedures Date CPT Code Description Status 02/19/2017 Mammogram Completed 01/06/2017 24555 Diffusing Capacity Completed 01/06/2017 01564 Plethysmography Determination Lung Volumes & Per Airway Completed Resist 01/06/2017 67903 Pulmonary Function><Bronchodil Completed 02/13/2016 Mammogram Completed 08/24/2015 94879 ECHO Transthoracic, Real-Time 2D With Doppler And Color Completed Flow 05/16/2015 Colonoscopy Completed 01/13/2015 Mammogram Completed 09/09/2014 48449 EKG Tracing & Interpretation Completed 11/18/2013 Mammogram Completed 01/01/2013 39340 ECHO Transthoracic, Real-Time 2D With Doppler And Color Completed Flow 01/31/2012 Mammogram Completed 09/23/2011 Bone Mineral Density Test Completed 03/20/2011 86162 EKG Tracing & Interpretation Completed 01/11/2011 Mammogram Completed 11/27/2010 28857 Noninvasive Ear Or Pulse Oximetry For Oxygen Saturation Completed 03/30/2010 76719 Admin Of Inj Completed 08/18/2009 Mammogram Completed 10/19/2007 Mammogram Completed 03/17/2006 83682 ECHO/Stress Completed 03/17/2006 76975 ECHO/Stress Completed 03/17/2006 01833 Stress Test Completed 11/19/2005 Colonoscopy Completed 07/12/2003 79835 Echocardiogram Completed 07/12/2003 29159 Pulse Doppler & Continuous Wave Completed 07/12/2003 48210 Color Doppler Completed Encounters Type Date Location Provider CPT E/M Dx Office Visit 09/11/2017 [facility] Internal Víctor Cochran, [address] J45.991 11:40a Medicine - Tbkathrin Pollack M.D.,FACP T75.3xxA Office Visit 08/25/2017 3:40p [facility] Internal Jose Agustin, [address]452 J45.991 Medicine - Tbkathrin Pollack M.D. Office Visit 01/24/2017 9:30a [place] [address] M18.11 Of C.M.A. G56.21 Office Visit 12/18/2016 1:00p [facility] Internal Víctor Cochran, 73692 Z00.01 Medicine - Tbkathrin Pollack M.D.,FACP E83.110 M25.531 R05 Office Visit 08/17/2015 10:30a [facility] Internal Víctor Cochran, 79400 Z00.01 Medicine - Tbkathrin Pollack M.D.,FACP E83.110 E83.52 R05 I42.9 Z23 Office Visit 03/08/2015 4:20p [facility] Internal Víctor Cochran, 17282 S33.6xxA Medicine - Tbkathrin Pollack M.D.,FACP Office Visit 09/09/2014 1:00p [facility] Internal Sebastián Guevara M.D. 14898 465.9 Medicine - [place] Ranjeet 786.2 240.9 785.0 Office Visit 07/13/2014 1:00p [facility] Víctor Cochran, [address] V70.0 - [place] Ranjeet OrtaD.,FACP 272.0 275.01 275.42 Office Visit 04/11/2014 2:00p [facility] Internal Medicine VíctorMagan Cochran, 764[address] 786.50 - Jess Rodriguez,FACP 426.2 Office Visit 12/31/2012 3:00p [facility] Medicine VíctorMagan Cochran, 70659 V70.0 - Jess Rodriguez,FACP 571.8 275.01 272.0 790.21 396.9 Office Visit 09/19/2011 1:20p [facility] Medicine VíctorMagan Cochran, 57467 V70.0 - Jess Rodriguez,FACP 275.01 571.8 272.0 477.0 268.9 Office Visit 03/20/2011 3:40p DO Not Use [employer] AT VíctorMagan Cochran, 46151 426.3 Nela Rodriguez,FACP 275.42 275.01 Office Visit 11/27/2010 10:30a DO Not Use Dra[employer] AT [facility] [address] 692.89 [facility] 466.0 477.9 Office Visit 08/17/2010 2:00p DO Not Use Drapery Supervisor AT VíctorMagan Cochran, 62574 V70.0 Nela Rodriguez,FACP 571.8 275.09 790.21 272.0 726.19 Office Visit 08/16/2008 2:40p DO Not Use Drapery Supervisor AT Víctor Cochran, 48684 780.4 Nela Rodriguez,FACP 786.50 401.1 571.40 Office Visit 04/23/2007 9:30a DO Not Use Drapery Supervisor AT VíctorMagan Cochran, 65448 562.11 Neal Rodriguez,FACP Office Visit 04/20/2007 10:30a DO Not Use Drapery Supervisor AT VíctorMagan Cochran, 79870 575.0 Nela Rodriguez,FACP 535.40 Plan of Care Future Appointment(s):01/26/2018 11:15 am - Robb Pisano MD at [facility].12/19/2017 3:20 pm - Víctor Cochran M.D.,FACP at [facility] Internal Medicine - [place] 12/12/2017 - Robb Pisano, MDM23.301 Oth meniscus derangements, unsp lateral meniscus, left kneeNew Therapy:Physical TherapyFollow up:6 weeks
--- NOTE | 2017-12-28 15:16 | UC ---
Skin Complaint HPI - HPI Summary HPI Summary: This is janay Austin documenting for attending Edgar Suggs MD. This patient is a 77 year old F presenting to [facility] accompanied by her with a chief complaint of red lesion on her inner upper left thigh since 4 days ago. At first appeared as a red spot like a pimple that had been scratched and the patient cleaned it with an alcohol wipe, applied Bactine, and placed a band- aid on it. The patient reports that she assumed it had been a pimple that she scratched in the night. The patient notes that since the onset, the area of erythema has increased in size. The patient rates the pain 0/10 in severity. Symptoms aggravated by applying Bactine. Symptoms alleviated by nothing. Patient reports slight pruritus. Patient denies any pain. The patient reports that she recently switched the type of antibiotic ointment she uses to Bactine. The patient notes she has worn pants in the last few days that may have irritated the area. Patient denies spending much time outdoors or any recent tick bites. - History of Current Complaint Chief Complaint: UCSkin Time Seen by Provider: 12/28/17 14:51 Stated Complaint: L HIP POSS INSECT BITE Hx Obtained From: Patient Hx Last Menstrual Period: na Onset/Duration: Sudden Onset, Lasting Days - 4 days, Still Present Skin Exposure Onset/Duration: Days Ago Timing: Constant Current Severity: None Pain Intensity: 0 Pain Scale Used: 0-10 Numeric Location: Other - inner upper left thigh Character: Pruritus, Redness Aggravating Factor(s): OTC Meds - Bactine Alleviating Factor(s): Nothing Associated Signs & Symptoms: Positive: Rash Related History: Recent change in medication - change in antibiotic ointment - Allergy/Home Medications Allergies/Adverse Reactions: Allergies Allergy/AdvReac Type Severity Reaction Status Date / Time lisinopril Allergy Intermediate Coughing Verified 12/28/17 14:39 Penicillins Allergy Intermediate Rash Verified 12/28/17 14:39 Home Medications: Home Medications Albuterol inh POWDER (NF) [Proair Respiclick] 108 mcg IN 12/28/17 [History] Aspirin 81 mg CHEW TAB* 12/28/17 [History] Dextran/Hypromellose/Glycerin [Genteal Tears 0.1%-0.2%-0.3%] 15 ml OPHTHALMIC DAILY WITH MEAL 12/28/17 [History Confirmed 12/28/17] Fluticasone Propionate [Flovent Diskus] 50 mcg IH DAILY WITH MEAL 12/28/17 [ History Confirmed 12/28/17] Omeprazole 20 mg PO DAILY WITH MEAL 12/28/17 [History Confirmed 12/28/17] Propylene Glycol/Peg 400/Pf [Systane 0.3-0.4% Eye Drops] 1 mg PO DAILY WITH MEAL 12/28/17 [History Confirmed 12/28/17] Scopolamine 1.5 mg* PATCH* [Transderm-Scop 1.5 mg Patch*] 1 patch TRANSDERM Q72H 12/28/17 [History Confirmed 12/28/17] Review of Systems Constitutional: Negative - negative fever Skin: Rash - on inner upper left thigh Musculoskeletal: Negative - negative leg pain Neurological: Negative - negative weakness All Other Systems Reviewed And Are Negative: Yes PMH/Surg Hx/FS Hx/Imm Hx Previously Healthy: Yes - Surgical History Surgical History: None Surgery Procedure, Year, and Place: Tonsils child - Family History Known Family History: Positive: None - patient denies relevant FHx - Social History Alcohol Use: Occasionally Substance Use Type: None Smoking Status (MU): Never Smoked Tobacco Physical Exam - Summary Physical Exam Summary: Appearance: Well-appearing, Well-nourished Skin: Warm, 7cm by 3cm erythematous, blanchable, region below the inguinal ligament Eyes: Normal ENT: Normal Neck: Supple, nontender Respiratory: Clear to auscultation Cardiovascular: Regular rate, regular rhythm. Normal S1, S2. Abdomen: Soft, nontender Musculoskeletal: Normal, Strength/ROM Intact Neurological: Normal, A&Ox3 Psychiatric: Normal General: No acute distress Triage Information Reviewed: Yes Vital Signs: Initial Vital Signs Temp 98.8 F 12/28/17 14:33 Pulse 106 12/28/17 14:33 Resp 22 12/28/17 14:33 BP 152/68 12/28/17 14:33 Pulse Ox 97 12/28/17 14:33 Vital Signs Reviewed: Yes Course/Dx - Course Course Of Treatment: Does not appear to be erythema migrans nor a typical arthropod bite. May be atopic dermatitis as it became worse with applying bactine and with rubbing of pants in that area. advised hydrocortisone crean BID x1 week and f/u with derm if sx do not improve - Diagnoses Provider Diagnoses: atopic dermatitis Discharge - Sign-Out/Discharge Documenting (check all that apply): Patient Departure - Discharge Plan Condition: Stable Disposition: HOME Patient Education Materials: Dermatitis (ED) Referrals: Víctor Cochran MD [Primary Care Provider] - Additional Instructions: Go to Dermatology is symptoms worsen in one week - Billing Disposition and Condition Condition: STABLE Disposition: Home
== END 2017-12-28 15:31 | disposition home or self-care (01) ==
LOC: UCEAST 14:29
DX: L20.9 Atopic dermatitis, unspecified (principal); Z88.0 Allergy status to penicillin; Z88.8 Allergy status to other drugs, medicaments and biological substances